=== PATIENT | female | born 1985 | race Caucasian/White ===

== ENCOUNTER 2016-03-31 14:32 | Emergency (ER) | payer BC, OTHER ==
[~2016-03-31] VITALS: Ht 162.6 cm; Wt 112.0 kg
[2016-03-31] MEDS ORDERED: FLUORESCEIN OPHTH 1 MG STRIP As Ordered ONE (15:11)
[2016-03-31] MEDS ORDERED: TETRACAINE 0.5% OPHTH SOLN 4ML As Ordered ONE (15:11)
[2016-03-31] MEDS ORDERED: MORPHINE 4 MG/ML 1ML SYRINGE As Ordered ONE (16:02)
[2016-03-31] MEDS ORDERED: ONDANSETRON 4MG/2ML VIAL (J2405) As Ordered ONE (16:02)
[2016-03-31] MEDS ORDERED: AcetaZOLAMIDE 500MG INJECTION (J1120) IV ONE (16:30)
[2016-03-31] MEDS ORDERED: prednisoLONE ACET 1% OPHTH SUSP 5ML OD SCH (16:30)
[2016-03-31] MEDS ORDERED: PILOCARPINE 2% OPHTH 15 ML SOLN OD SCH (16:30)
[2016-03-31] MEDS ORDERED: TIMOLOL MALEATE 0.5% OPHTH SOLN 5 ML XX SCH (16:30)
[2016-03-31 16:46] LABS: BASO # 0.1 K/mm3 (0.0-0.2); BASO % 1.4 % (0.0-1.0); EOS # 0.2 K/mm3 (0.0-0.50); EOS % 2.7 % (0.0-3.0); LARGE UNSTAINED CELL # 0.2 K/mm3 (0.0-0.4); LARGE UNSTAINED CELL % 2.9 % (0.0-4.0); LYMPH # 2.9 K/mm3 (1.5-4.5); LYMPH % 32.2 % (24.0-44.0); MEAN CORPUSCULAR HEMOGLOBIN 29.5 pg (27.0-33.0); MEAN CORPUSCULAR HGB CONC 32.6 g/dl (32.0-36.5); MEAN CORPUSCULAR VOLUME 90.3 fl (80.0-96.0); MONO # 0.4 K/mm3 (0.0-0.8); MONO % 4.9 % (0.0-5.0); NEUTROPHILS # 4.6 K/mm3 (1.8-7.7); PLATELET COUNT, AUTOMATED 323 k/mm3 (150-450); RED CELL DISTRIBUTION WIDTH 13.2 % (11.5-14.5); WHITE BLOOD COUNT 8.3 K/mm3 (4.0-10.0)
[2016-03-31 16:56] LABS: ANION GAP 7 MEQ/L (8-16); BLOOD UREA NITROGEN 14 MG/DL (7-18); CALCIUM LEVEL 9.5 MG/DL (8.5-10.1); CARBON DIOXIDE LEVEL 30 MEQ/L (21-32); CHLORIDE LEVEL 104 MEQ/L (98-107); CREATININE FOR GFR 0.87 MG/DL (0.55-1.02); GLOMERULAR FILTRATION RATE > 60.0 (>60); GLUCOSE, FASTING 80 MG/DL (70-105); POTASSIUM SERUM 3.5 MEQ/L (3.5-5.1); SODIUM LEVEL 141 MEQ/L (136-145)
--- NOTE | 2016-03-31 17:00 | EDDOCDS ---
Physician Documentation [facility] Name: Olimpia Gibson Age: 30 yrs Sex: Female : 1985 Arrival Date: 03/31/2016 Time: 14:32 Bed 17 Private MD: Disposition: 03/31 16:28 Critical Care:. pc Disposition: 03/31/16 16:47 Discharged to Home/Self Care. Impression: Acute angle-closure glaucoma, right eye. - Condition is Stable. - Discharge Instructions: Glaucoma. - Medication Reconciliation, Local Pharmacy Hours form. - Follow up: Sheela He; When: Upon discharge from the Emergency Department; Reason: Further diagnostic work-up. - Problem is new. - Symptoms have improved. Historical: - Allergies: Augmentin (Rash); - Home Meds: 1. Paxil 40 mg Oral tab 1 tab once daily (Last dose: 03/30/2016) 2. lisinopril 10 mg Oral tab 1 tab once daily (Last dose: 03/30/2016) 3. Vitamin B-12 1000mcg Oral month 4. hydrochlorothiazide 25 mg Oral tab 1 tab once daily (Last dose: 03/31/2016) 5. atorvastatin 20 mg oral tab 1 tab once daily (Last dose: 03/30/2016) 6. Garza-Linyah 0.25-35 mg-mcg oral tab 1 tab once daily (Last dose: 03/24/2016 20:00) 7. famotidine 20 mg Oral tab 1 tab every 12 hours (Last dose: 03/31/2016) - PMHx: Hypercholesterolemia; GERD; Hypertension; Depression; - PSHx: ; Cholecystectomy; - Social history: Smoking status: Patient states was never smoker of tobacco. No barriers to communication noted, The patient speaks fluent Salvadorean. - : The pt / caregiver states he / she is not on anticoagulants. Home medication list is obtained from the patient. - Exposure Risk Screening:: None identified. Exam: 16:28 EENT: right pupil 6mm, sluggish, painful constriction. Conjunctival erythema and pc scleral injection. Corneal edema. Anterior chamber normal. Limited fundoscopic exam normal. VA 20/25 right, 20/20 left. IOP right eye 44.. Vital Signs: 14:39 BP 139 / 73; Pulse 78; Resp 16; Temp 97.3; Pulse Ox 100% ; Weight 112.04 kg / 247.01 kr3 lbs; Height 5 ft. 4 in. (162.56 cm); Pain 10/10; 14:39 Body Mass Index 42.40 (112.04 kg, 162.56 cm) kr3 Visual Acuity: 14:49 Left Eye Visual acuity 20/25, ; Right Eye Visual acuity 20/25, ; Both Eyes Visual jmk acuity 20/25; Without Lenses; MDM: 15:14 Tetracaine (PF) Drops 0.5 % 2 drps Ophthalmic once ordered. jo4 15:14 Fluorescein Strip 1 strips Ophthalmic in right eye once ordered. jo4 15:35 Financial registration complete. gjb 15:57 IV Saline Lock ordered. pc 15:57 morphine 4 mg IVP every 15 minutes; Document pain score/vitals after each dose (Hold if pc SBP < 90mmHg) x2 ordered. 15:57 Ondansetron 4 mg IVP once ordered. pc 15:58 acetaZOLAMIDE 500 mg IV at calculated rate once ordered. pc 15:59 Timolol Drops 0.5 % 1 drps Ophthalmic once ordered. pc 15:59 CBC with Diff Ordered. EDMS 15:59 MED Profile Ordered. EDMS 16:03 Apraclonidine Drops 1 % 1 drps Ophthalmic in right eye once; one minute after Timolol pc ordered. 16:03 Pilocarpine Drops 2 % 1 drps Ophthalmic in right eye every 15 minutes; for total of 2 pc doses ordered. 16:03 prednisoLONE Drops 1 % 1 drps Ophthalmic in right eye every 15 minutes; for total of 4 pc doses ordered. 16:28 The patient has been re-examined and re-evaluated. The patient's symptoms have mildly pc improved after treatment. Physician consultation: Dr. Sheela He regarding patient's condition, and she advises to give the acetazolamide as ordered but to hold off on any further eye drops, that she should go directly to their office for laser therapy. . Disposition: The historical points, examination findings, and any diagnostic results supporting the provided diagnosis, were discussed with the patient or legal guardian. The need for outpatient follow up with the provider listed on their discharge instructions was discussed. They were encouraged to return to [facility], or the nearest ED, if symptoms worsen/persist, or for any other questions/concerns. 16:47 [facility] Payment Agreement was scanned into [employer] and attached to record. gjb Administered Medications: 15:45 Drug: Fluorescein 1 strips [fluorescein 1 mg eye strips (1 strips)] Route: Ophthalmic; [facility] Site: right eye; 16:32 Drug: Ondansetron 4 mg [ondansetron HCl 2 mg/mL intravenous solution (2 mL)] Route: bcj IVP; Site: right antecubital; 16:33 Drug: morphine 4 mg [morphine 4 mg/mL intravenous cartridge (1 mL)] Route: IVP; Site: bcj right antecubital; 16:55 Not Given (d/josé per MD): Pilocarpine Drops 2 % 1 drps Ophthalmic in right eye every 15 bcj minutes; for total of 2 doses 16:55 Not Given (d/josé per MD): prednisoLONE Drops 1 % 1 drps Ophthalmic in right eye every bcj 15 minutes; for total of 4 doses 16:56 Drug: acetaZOLAMIDE 500 mg Route: IV; Rate: calculated rate; Site: right antecubital; j 16:56 Not Given (d/josé per MD): Timolol Drops 0.5 % 1 drps Ophthalmic once bcj 16:56 Not Given (d/josé per MD): Apraclonidine Drops 1 % 1 drps Ophthalmic in right eye once; [facility] one minute after Timolol 16:57 Drug: Tetracaine (PF) 2 drps [tetracaine HCl (PF) 0.5 % eye drops (2 drps)] Route: bcj Ophthalmic; Site: right eye; Critical Care Time: 16:28 Critical care time: Bedside Care: 20 minutes, Consultation: 15 minutes, Family pc Intervention: 10 minutes. Total time: 45 minutes Signatures: Dispatcher [employer] Luis Lorenzo MD MD pc Johnson, Bruce, RN RN bcj Knapp, Jean, RN RN jmk Beck, Gabriela gjb Oosthuizen, Jane, DO DO jo4 The chart was reviewed and I authenticate all verbal orders and agree with the evaluation and treatment provided.Attachments: 16:47 [facility] Payment Agreement gjb MTDD
--- NOTE | 2016-03-31 17:00 | EDDOCDS ---
Nurse's Notes [facility] Name: Olimpia Gibson Age: 30 yrs Sex: Female : 1985 Arrival Date: 03/31/2016 Time: 14:32 Bed 17 Private MD: Diagnosis: Acute angle-closure glaucoma, right eye Presentation: 03/31 14:35 Presenting complaint: Patient states: transfer fro [facility] office for right eye pain jmk without injury x days. reports hazy vision. + headache, and indicates history of migraines, but this event is different. Mechanism of Injury: No Mechanism of Injury. The patient denies any loss of vision. Adult Sepsis Screening: The patient does not have new or worsening altered mentation. Patient's respiratory rate is less than 22. Systolic blood pressure is greater than 100. Patient has a qSOFA score of 1- Negative Sepsis Screen. Suicide/Homicide risk assessment- the patient denies having any suicidal and/or homicidal ideations and does not present with any other emotional, behavioral or mental health complaints. Status: Patient is not a food and nutrition services supervisor or dependent. Transition of care: patient was received from a primary care office; [facility]. 14:35 Acuity: MAINE Level 3 [facility] 14:35 Method Of Arrival: Ambulance [facility] Triage Assessment: 14:44 General: Appears uncomfortable. Pain: Location: right eye Pain currently is 6 out of 10 jmk on a pain scale. Pt Declines HIV testing. Historical: - Allergies: Augmentin (Rash); - Home Meds: 1. Paxil 40 mg Oral tab 1 tab once daily (Last dose: 03/30/2016) 2. lisinopril 10 mg Oral tab 1 tab once daily (Last dose: 03/30/2016) 3. Vitamin B-12 1000mcg Oral month 4. hydrochlorothiazide 25 mg Oral tab 1 tab once daily (Last dose: 03/31/2016) 5. atorvastatin 20 mg oral tab 1 tab once daily (Last dose: 03/30/2016) 6. [place]-Linyah 0.25-35 mg-mcg oral tab 1 tab once daily (Last dose: 03/24/2016 20:00) 7. famotidine 20 mg Oral tab 1 tab every 12 hours (Last dose: 03/31/2016) - PMHx: Hypercholesterolemia; GERD; Hypertension; Depression; - PSHx: ; Cholecystectomy; - Social history: Smoking status: Patient states was never smoker of tobacco. No barriers to communication noted, The patient speaks fluent Kinyarwanda. - : The pt / caregiver states he / she is not on anticoagulants. Home medication list is obtained from the patient. - Exposure Risk Screening:: None identified. Screenin:52 Screening information is obtained from the patient. Fall risk: No risks identified. jmk Assistance ADL's: requires no assistance with activities of daily living. Abuse/DV Screen: The patient / caregiver reports he/she is: not in a situation that causes fear, pain or injury. Nutritional screening: No deficits noted. Advance Directives: Currently, there is no health care proxy. There is no active DNR order. There is no living will. There is no Power of Software Design Analyst. Advance directive information has not previously been placed in an [facility] medical record. Further advance directive information is declined. home support is adequate. Assessment: 14:50 General: Appears Appears uncomfortable. MARKIE . + light sensitive. Sclera redness on jmk right. Indicates discomfort to occipital and to top of head.. Vital Signs: 14:39 BP 139 / 73; Pulse 78; Resp 16; Temp 97.3; Pulse Ox 100% ; Weight 112.04 kg; Height 5 kr3 ft. 4 in. (162.56 cm); Pain 10/10; 14:39 Body Mass Index 42.40 (112.04 kg, 162.56 cm) kr3 Vitals: 14:39 Log In Time N/A - ambulance arrival. kr3 Visual Acuity: 14:49 Left Eye Visual acuity 20/25, ; Right Eye Visual acuity 20/25, ; Both Eyes Visual jmk acuity 20/25; Without Lenses; ED Course: 14:32 Patient visited by Bhargav Goel PCA. jlf 14:32 Patient moved to Waiting jlf 14:33 Patient moved to [id number] jlf 14:38 Triage Initiated k 14:42 [facility] jo4 14:42 Luis Blackwell MD is Attending Physician. jo4 14:46 Patient visited by Mariia Sinclair DO. jo4 14:46 Patient visited by Mariia Sinclair DO. jo4 14:52 Patient visited by Olvin HewittWALT. alicia 14:52 The patient / caregiver is instructed regarding the plan of care and ED course. alicia 14:52 Maintain field IV. Gauge & site: 20 right ac. alicia 15:54 ADAM Bennett is Referral Physician. jo4 15:57 Patient moved to 17 [facility] 16:16 Patient visited by Kasandra Barajas PCA. ct3 16:46 Patient name changed from Olimpia\S\\S\Paige\S\ to Olimpia\S\E\S\Paige. EDMS 16:47 Sheela He is Referral Physician. pc 16:47 [facility] [place] was scanned into [employer] and attached to record. gjb 16:58 Patient visited by [facility]ket [facility] RN[facility] Administered Medications: 15:45 Drug: Fluorescein 1 strips [fluorescein 1 mg eye strips (1 strips)] Route: Ophthalmic; j Site: right eye; 16:32 Drug: Ondansetron 4 mg [ondansetron HCl 2 mg/mL intravenous solution (2 mL)] Route: bcj IVP; Site: right antecubital; 16:33 Drug: morphine 4 mg [morphine 4 mg/mL intravenous cartridge (1 mL)] Route: IVP; Site: bcj right antecubital; 16:55 Not Given (d/josé per MD): Pilocarpine Drops 2 % 1 drps Ophthalmic in right eye every 15 bcj minutes; for total of 2 doses 16:55 Not Given (d/josé per MD): prednisoLONE Drops 1 % 1 drps Ophthalmic in right eye every bcj 15 minutes; for total of 4 doses 16:56 Drug: acetaZOLAMIDE 500 mg Route: IV; Rate: calculated rate; Site: right antecubital; bcj 16:56 Not Given (d/ojsé per MD): Timolol Drops 0.5 % 1 drps Ophthalmic once bcj 16:56 Not Given (d/josé per MD): Apraclonidine Drops 1 % 1 drps Ophthalmic in right eye once; bcj one minute after Timolol 16:57 Drug: Tetracaine (PF) 2 drps [tetracaine HCl (PF) 0.5 % eye drops (2 drps)] Route: bcj Ophthalmic; Site: right eye; Order Results: Lab Order: CBC with Diff; SPEC'M 03/31/16 16:27 Test: WHITE BLOOD COUNT; Value: 8.3; Range: 4.0-10.0; Units: K/mm3; Status: F Test: RED BLOOD COUNT; Value: 4.12; Range: 4.00-5.40; Units: M/mm3; Status: F Test: HEMOGLOBIN; Value: 12.1; Range: 12.0-16.0; Units: g/dl; Status: F Test: HEMATOCRIT; Value: 37.2; Range: 36.0-47.0; Units: %; Status: F Test: MEAN CORPUSCULAR VOLUME; Value: 90.3; Range: 80.0-96.0; Units: fl; Status: F Test: MEAN CORPUSCULAR HEMOGLOBIN; Value: 29.5; Range: 27.0-33.0; Units: pg; Status: F Test: MEAN CORPUSCULAR HGB CONC; Value: 32.6; Range: 32.0-36.5; Units: g/dl; Status: F Test: RED CELL DISTRIBUTION WIDTH; Value: 13.2; Range: 11.5-14.5; Units: %; Status: F Test: PLATELET COUNT, AUTOMATED; Value: 323; Range: 150-450; Units: k/mm3; Status: F Test: NEUTROPHILS %; Value: 56.0; Range: 36.0-66.0; Units: %; Status: F Test: LYMPH %; Value: 32.2; Range: 24.0-44.0; Units: %; Status: F Test: MONO %; Value: 4.9; Range: 0.0-5.0; Units: %; Status: F Test: EOS %; Value: 2.7; Range: 0.0-3.0; Units: %; Status: F Test: BASO %; Value: 1.4; Range: 0.0-1.0; Abnormal: Above high normal; Units: %; Status: F Test: LARGE UNSTAINED CELL %; Value: 2.9; Range: 0.0-4.0; Units: %; Status: F Test: NEUTROPHILS #; Value: 4.6; Range: 1.8-7.7; Units: K/mm3; Status: F Test: LYMPH #; Value: 2.9; Range: 1.5-4.5; Units: K/mm3; Status: F Test: MONO #; Value: 0.4; Range: 0.0-0.8; Units: K/mm3; Status: F Test: EOS #; Value: 0.2; Range: 0.0-0.50; Units: K/mm3; Status: F Test: BASO #; Value: 0.1; Range: 0.0-0.2; Units: K/mm3; Status: F Test: LARGE UNSTAINED CELL #; Value: 0.2; Range: 0.0-0.4; Units: K/mm3; Status: F Lab Order: MED Profile; SPEC'M 03/31/16 16:27 Test: GLUCOSE, FASTING; Value: 80; Range: 70-105; Units: MG/DL; Status: F Test: BLOOD UREA NITROGEN; Value: 14; Range: 7-18; Units: MG/DL; Status: F Test: CREATININE FOR GFR; Value: 0.87; Range: 0.55-1.02; Units: MG/DL; Status: F Test: GLOMERULAR FILTRATION RATE; Value: > 60.0; Range: >60; Status: F Test: SODIUM LEVEL; Value: 141; Range: 136-145; Units: MEQ/L; Status: F Test: POTASSIUM SERUM; Value: 3.5; Range: 3.5-5.1; Units: MEQ/L; Status: F Test: CHLORIDE LEVEL; Value: 104; Range: 98-107; Units: MEQ/L; Status: F Test: CARBON DIOXIDE LEVEL; Value: 30; Range: 21-32; Units: MEQ/L; Status: F Test: ANION GAP; Value: 7; Range: 8-16; Abnormal: Below low normal; Units: MEQ/L; Status: F Test: CALCIUM LEVEL; Value: 9.5; Range: 8.5-10.1; Units: MG/DL; Status: F Test Note: ; Units are mL/min/1.73 m2 Chronic Kidney Disease Staging per NKF: Stage I & II GFR >=60 Normal to Mildly Decreased Stage III GFR 30-59 Moderately Decreased Stage IV GFR 15-29 Severely Decreased Stage V GFR <15 Very Little GFR Left ESRD GFR <15 on SOLUTION SPECIALIST Outcome: 15:55 Discharge ordered by Provider. jo4 16:47 Discharge ordered by Provider. pc 16:59 Patient left the ED. maya Signatures: Dispatcher MedHost EDLuis Godfrey MD MD pc Jobson, Karen, RN RN Bereket Durbin RN RN Olvin MckeonRN RN Vicky Alba,RN RN kr3 Kasandra Barajas, PROFESSIONAL NURSE PROFESSIONAL NURSE ct3 Bhargav Goel, PROFESSIONAL NURSE PROFESSIONAL NURSE dougief Ирина Carrillo Jane, DO DO jo4 MTDD
--- NOTE | 2016-04-02 18:00 | EDDOCDS ---
Nurse's Notes [facility] Name: Olimpia Gibson Age: 30 yrs Sex: Female : 1985 Arrival Date: 03/31/2016 Time: 14:32 Bed 17 Private MD: Diagnosis: Acute angle-closure glaucoma, right eye Presentation: 03/31 14:35 Presenting complaint: Patient states: transfer fro [facility] office for right eye pain jmk without injury x days. reports hazy vision. + headache, and indicates history of migraines, but this event is different. Mechanism of Injury: No Mechanism of Injury. The patient denies any loss of vision. Adult Sepsis Screening: The patient does not have new or worsening altered mentation. Patient's respiratory rate is less than 22. Systolic blood pressure is greater than 100. Patient has a qSOFA score of 1- Negative Sepsis Screen. Suicide/Homicide risk assessment- the patient denies having any suicidal and/or homicidal ideations and does not present with any other emotional, behavioral or mental health complaints. Status: Patient is not a community service officer coordinator or dependent. Transition of care: patient was received from a primary care office; [facility]. 14:35 Acuity: MAINE Level 3 [facility] 14:35 Method Of Arrival: Ambulance [facility] Triage Assessment: 14:44 General: Appears uncomfortable. Pain: Location: right eye Pain currently is 6 out of 10 jmk on a pain scale. Pt Declines HIV testing. Historical: - Allergies: Augmentin (Rash); - Home Meds: 1. Paxil 40 mg Oral tab 1 tab once daily (Last dose: 03/30/2016) 2. lisinopril 10 mg Oral tab 1 tab once daily (Last dose: 03/30/2016) 3. Vitamin B-12 1000mcg Oral month 4. hydrochlorothiazide 25 mg Oral tab 1 tab once daily (Last dose: 03/31/2016) 5. atorvastatin 20 mg oral tab 1 tab once daily (Last dose: 03/30/2016) 6. [place]-Linyah 0.25-35 mg-mcg oral tab 1 tab once daily (Last dose: 03/24/2016 20:00) 7. famotidine 20 mg Oral tab 1 tab every 12 hours (Last dose: 03/31/2016) - PMHx: Hypercholesterolemia; GERD; Hypertension; Depression; - PSHx: ; Cholecystectomy; - Social history: Smoking status: Patient states was never smoker of tobacco. No barriers to communication noted, The patient speaks fluent Romansh. - : The pt / caregiver states he / she is not on anticoagulants. Home medication list is obtained from the patient. - Exposure Risk Screening:: None identified. Screenin:52 Screening information is obtained from the patient. Fall risk: No risks identified. jmk Assistance ADL's: requires no assistance with activities of daily living. Abuse/DV Screen: The patient / caregiver reports he/she is: not in a situation that causes fear, pain or injury. Nutritional screening: No deficits noted. Advance Directives: Currently, there is no health care proxy. There is no active DNR order. There is no living will. There is no Power of Ops Analyst. Advance directive information has not previously been placed in an [facility] medical record. Further advance directive information is declined. home support is adequate. Assessment: 14:50 General: Appears Appears uncomfortable. MARKIE . + light sensitive. Sclera redness on jmk right. Indicates discomfort to occipital and to top of head.. Vital Signs: 14:39 BP 139 / 73; Pulse 78; Resp 16; Temp 97.3; Pulse Ox 100% ; Weight 112.04 kg; Height 5 kr3 ft. 4 in. (162.56 cm); Pain 10/10; 14:39 Body Mass Index 42.40 (112.04 kg, 162.56 cm) kr3 Vitals: 14:39 Log In Time N/A - ambulance arrival. kr3 Visual Acuity: 14:49 Left Eye Visual acuity 20/25, ; Right Eye Visual acuity 20/25, ; Both Eyes Visual jmk acuity 20/25; Without Lenses; ED Course: 14:32 Patient visited by Bhargav Goel PCA. jlf 14:32 Patient moved to Waiting jlf 14:33 Patient moved to [id number] jlf 14:38 Triage Initiated k 14:42 [facility] jo4 14:42 Luis Blackwell MD is Attending Physician. jo4 14:46 Patient visited by Mariia Sinclair DO. jo4 14:46 Patient visited by Mariia Sinclair DO. jo4 14:52 Patient visited by Olvin HewittWALT. alicia 14:52 The patient / caregiver is instructed regarding the plan of care and ED course. alicia 14:52 Maintain field IV. Gauge & site: 20 right ac. alicia 15:54 ADAM Bennett is Referral Physician. jo4 15:57 Patient moved to 17 [facility] 16:16 Patient visited by Kasandra Barajas PCA. ct3 16:46 Patient name changed from Olimpia\S\\S\Paige\S\ to Olimpia\S\E\S\Paige. EDMS 16:47 Sheela He is Referral Physician. pc 16:47 [facility] Payment Agreement was scanned into [employer] and attached to record. gjb 16:58 Patient visited by Bereket Andrea RN. [facility] 04/01 11:45 T-Sheet-- Draft Copy was scanned into [employer] and attached to record. gb Administered Medications: 03/31 15:45 Drug: Fluorescein 1 strips [fluorescein 1 mg eye strips (1 strips)] Route: Ophthalmic; [facility] Site: right eye; 16:32 Drug: Ondansetron 4 mg [ondansetron HCl 2 mg/mL intravenous solution (2 mL)] Route: bcj IVP; Site: right antecubital; 16:33 Drug: morphine 4 mg [morphine 4 mg/mL intravenous cartridge (1 mL)] Route: IVP; Site: j right antecubital; 16:55 Not Given (d/josé per MD): Pilocarpine Drops 2 % 1 drps Ophthalmic in right eye every 15 bcj minutes; for total of 2 doses 16:55 Not Given (d/josé per MD): prednisoLONE Drops 1 % 1 drps Ophthalmic in right eye every bcj 15 minutes; for total of 4 doses 16:56 Drug: acetaZOLAMIDE 500 mg Route: IV; Rate: calculated rate; Site: right antecubital; [facility] 16:56 Not Given (d/josé per MD): Timolol Drops 0.5 % 1 drps Ophthalmic once bcj 16:56 Not Given (d/josé per MD): Apraclonidine Drops 1 % 1 drps Ophthalmic in right eye once; bcj one minute after Timolol 16:57 Drug: Tetracaine (PF) 2 drps [tetracaine HCl (PF) 0.5 % eye drops (2 drps)] Route: [facility] Ophthalmic; Site: right eye; Order Results: Lab Order: CBC with Diff; SPEC'M 03/31/16 16:27 Test: WHITE BLOOD COUNT; Value: 8.3; Range: 4.0-10.0; Units: K/mm3; Status: F Test: RED BLOOD COUNT; Value: 4.12; Range: 4.00-5.40; Units: M/mm3; Status: F Test: HEMOGLOBIN; Value: 12.1; Range: 12.0-16.0; Units: g/dl; Status: F Test: HEMATOCRIT; Value: 37.2; Range: 36.0-47.0; Units: %; Status: F Test: MEAN CORPUSCULAR VOLUME; Value: 90.3; Range: 80.0-96.0; Units: fl; Status: F Test: MEAN CORPUSCULAR HEMOGLOBIN; Value: 29.5; Range: 27.0-33.0; Units: pg; Status: F Test: MEAN CORPUSCULAR HGB CONC; Value: 32.6; Range: 32.0-36.5; Units: g/dl; Status: F Test: RED CELL DISTRIBUTION WIDTH; Value: 13.2; Range: 11.5-14.5; Units: %; Status: F Test: PLATELET COUNT, AUTOMATED; Value: 323; Range: 150-450; Units: k/mm3; Status: F Test: NEUTROPHILS %; Value: 56.0; Range: 36.0-66.0; Units: %; Status: F Test: LYMPH %; Value: 32.2; Range: 24.0-44.0; Units: %; Status: F Test: MONO %; Value: 4.9; Range: 0.0-5.0; Units: %; Status: F Test: EOS %; Value: 2.7; Range: 0.0-3.0; Units: %; Status: F Test: BASO %; Value: 1.4; Range: 0.0-1.0; Abnormal: Above high normal; Units: %; Status: F Test: LARGE UNSTAINED CELL %; Value: 2.9; Range: 0.0-4.0; Units: %; Status: F Test: NEUTROPHILS #; Value: 4.6; Range: 1.8-7.7; Units: K/mm3; Status: F Test: LYMPH #; Value: 2.9; Range: 1.5-4.5; Units: K/mm3; Status: F Test: MONO #; Value: 0.4; Range: 0.0-0.8; Units: K/mm3; Status: F Test: EOS #; Value: 0.2; Range: 0.0-0.50; Units: K/mm3; Status: F Test: BASO #; Value: 0.1; Range: 0.0-0.2; Units: K/mm3; Status: F Test: LARGE UNSTAINED CELL #; Value: 0.2; Range: 0.0-0.4; Units: K/mm3; Status: F Lab Order: MED Profile; [facility]'M 03/31/16 16:27 Test: GLUCOSE, FASTING; Value: 80; Range: 70-105; Units: MG/DL; Status: F Test: BLOOD UREA NITROGEN; Value: 14; Range: 7-18; Units: MG/DL; Status: F Test: CREATININE FOR GFR; Value: 0.87; Range: 0.55-1.02; Units: MG/DL; Status: F Test: GLOMERULAR FILTRATION RATE; Value: > 60.0; Range: >60; Status: F Test: SODIUM LEVEL; Value: 141; Range: 136-145; Units: MEQ/L; Status: F Test: POTASSIUM SERUM; Value: 3.5; Range: 3.5-5.1; Units: MEQ/L; Status: F Test: CHLORIDE LEVEL; Value: 104; Range: 98-107; Units: MEQ/L; Status: F Test: CARBON DIOXIDE LEVEL; Value: 30; Range: 21-32; Units: MEQ/L; Status: F Test: ANION GAP; Value: 7; Range: 8-16; Abnormal: Below low normal; Units: MEQ/L; Status: F Test: CALCIUM LEVEL; Value: 9.5; Range: 8.5-10.1; Units: MG/DL; Status: F Test Note: ; Units are mL/min/1.73 m2 Chronic Kidney Disease Staging per NKF: Stage I & II GFR >=60 Normal to Mildly Decreased Stage III GFR 30-59 Moderately Decreased Stage IV GFR 15-29 Severely Decreased Stage V GFR <15 Very Little GFR Left ESRD GFR <15 on BAG BUNDLER Outcome: 15:55 Discharge ordered by Provider. jo4 16:47 Discharge ordered by Provider. 16:59 Patient left the ED. maya Signatures: Dispatcher [employer] EDMS Luis Blackwell MD MD pc Jobson, Karen, RN RN Bereket Durbin, RN RN Olvin Mckeon,RN RN Daylin Clarke, Jim Reg Vicky Houser,RN RN kr3 Kasandra Barajas, REAL ESTATE LAWYER REAL ESTATE LAWYER ct3 Manasa, Bhargav, REAL ESTATE LAWYER REAL ESTATE LAWYER jlf Ирина Carrillo Jane, DO DO jo4 Chart Complete BRITANY
--- NOTE | 2016-04-02 18:00 | EDDOCDS ---
Physician Documentation [facility] Name: Olimpia Gibson Age: 30 yrs Sex: Female : 1985 Arrival Date: 03/31/2016 Time: 14:32 Bed 17 Private MD: Disposition: 03/31 16:28 Critical Care:. pc Disposition: 03/31/16 16:47 Discharged to Home/Self Care. Impression: Acute angle-closure glaucoma, right eye. - Condition is Stable. - Discharge Instructions: Glaucoma. - Medication Reconciliation, Local Pharmacy Hours form. - Follow up: Sheela He; When: Upon discharge from the Emergency Department; Reason: Further diagnostic work-up. - Problem is new. - Symptoms have improved. Historical: - Allergies: Augmentin (Rash); - Home Meds: 1. Paxil 40 mg Oral tab 1 tab once daily (Last dose: 03/30/2016) 2. lisinopril 10 mg Oral tab 1 tab once daily (Last dose: 03/30/2016) 3. Vitamin B-12 1000mcg Oral month 4. hydrochlorothiazide 25 mg Oral tab 1 tab once daily (Last dose: 03/31/2016) 5. atorvastatin 20 mg oral tab 1 tab once daily (Last dose: 03/30/2016) 6. [place]-Linyah 0.25-35 mg-mcg oral tab 1 tab once daily (Last dose: 03/24/2016 20:00) 7. famotidine 20 mg Oral tab 1 tab every 12 hours (Last dose: 03/31/2016) - PMHx: Hypercholesterolemia; GERD; Hypertension; Depression; - PSHx: ; Cholecystectomy; - Social history: Smoking status: Patient states was never smoker of tobacco. No barriers to communication noted, The patient speaks fluent Belarusian. - : The pt / caregiver states he / she is not on anticoagulants. Home medication list is obtained from the patient. - Exposure Risk Screening:: None identified. Exam: 16:28 EENT: right pupil 6mm, sluggish, painful constriction. Conjunctival erythema and pc scleral injection. Corneal edema. Anterior chamber normal. Limited fundoscopic exam normal. VA 20/25 right, 20/20 left. IOP right eye 44.. Vital Signs: 14:39 BP 139 / 73; Pulse 78; Resp 16; Temp 97.3; Pulse Ox 100% ; Weight 112.04 kg / 247.01 kr3 lbs; Height 5 ft. 4 in. (162.56 cm); Pain 10/10; 14:39 Body Mass Index 42.40 (112.04 kg, 162.56 cm) kr3 Visual Acuity: 14:49 Left Eye Visual acuity 20/25, ; Right Eye Visual acuity 20/25, ; Both Eyes Visual jmk acuity 20/25; Without Lenses; MDM: 15:14 Tetracaine (PF) Drops 0.5 % 2 drps Ophthalmic once ordered. jo4 15:14 Fluorescein Strip 1 strips Ophthalmic in right eye once ordered. jo4 15:35 Financial registration complete. gjb 15:57 IV Saline Lock ordered. pc 15:57 morphine 4 mg IVP every 15 minutes; Document pain score/vitals after each dose (Hold if pc SBP < 90mmHg) x2 ordered. 15:57 Ondansetron 4 mg IVP once ordered. pc 15:58 acetaZOLAMIDE 500 mg IV at calculated rate once ordered. pc 15:59 Timolol Drops 0.5 % 1 drps Ophthalmic once ordered. pc 15:59 CBC with Diff Ordered. EDMS 15:59 MED Profile Ordered. EDMS 16:03 Apraclonidine Drops 1 % 1 drps Ophthalmic in right eye once; one minute after Timolol pc ordered. 16:03 Pilocarpine Drops 2 % 1 drps Ophthalmic in right eye every 15 minutes; for total of 2 pc doses ordered. 16:03 prednisoLONE Drops 1 % 1 drps Ophthalmic in right eye every 15 minutes; for total of 4 pc doses ordered. 16:28 The patient has been re-examined and re-evaluated. The patient's symptoms have mildly pc improved after treatment. Physician consultation: Dr. Sheela He regarding patient's condition, and she advises to give the acetazolamide as ordered but to hold off on any further eye drops, that she should go directly to their office for laser therapy. . Disposition: The historical points, examination findings, and any diagnostic results supporting the provided diagnosis, were discussed with the patient or legal guardian. The need for outpatient follow up with the provider listed on their discharge instructions was discussed. They were encouraged to return to [facility], or the nearest ED, if symptoms worsen/persist, or for any other questions/concerns. 16:47 [facility] [place] Agreement was scanned into [employer] and attached to record. gjb 04/01 11:45 T-Sheet-- Draft Copy was scanned into [employer] and attached to record. gb Administered Medications: 03/31 15:45 Drug: Fluorescein 1 strips [fluorescein 1 mg eye strips (1 strips)] Route: Ophthalmic; [facility] Site: right eye; 16:32 Drug: Ondansetron 4 mg [ondansetron HCl 2 mg/mL intravenous solution (2 mL)] Route: bcj IVP; Site: right antecubital; 16:33 Drug: morphine 4 mg [morphine 4 mg/mL intravenous cartridge (1 mL)] Route: IVP; Site: bc right antecubital; 16:55 Not Given (d/josé per MD): Pilocarpine Drops 2 % 1 drps Ophthalmic in right eye every 15 bcj minutes; for total of 2 doses 16:55 Not Given (d/josé per MD): prednisoLONE Drops 1 % 1 drps Ophthalmic in right eye every bcj 15 minutes; for total of 4 doses 16:56 Drug: acetaZOLAMIDE 500 mg Route: IV; Rate: calculated rate; Site: right antecubital; j 16:56 Not Given (d/josé per MD): Timolol Drops 0.5 % 1 drps Ophthalmic once bcj 16:56 Not Given (d/josé per MD): Apraclonidine Drops 1 % 1 drps Ophthalmic in right eye once; j one minute after Timolol 16:57 Drug: Tetracaine (PF) 2 drps [tetracaine HCl (PF) 0.5 % eye drops (2 drps)] Route: bcj Ophthalmic; Site: right eye; Critical Care Time: 16:28 Critical care time: Bedside Care: 20 minutes, Consultation: 15 minutes, Family pc Intervention: 10 minutes. Total time: 45 minutes Signatures: Dispatcher [employer] Luis Lorenzo MD MD pc Johnson, Bruce, RN RN bcj Knapp, Jean, RN RN Daylin Clarke Reg Reg gb Beck, Gabriela [facility] Mariia Sinclair DO DO jo4 The chart was reviewed and I authenticate all verbal orders and agree with the evaluation and treatment provided.Attachments: 16:47 [facility] [place] Agreement [facility] 04/01 11:45 T-Sheet-- Draft Copy gb Chart Complete MTDD
--- NOTE | 2016-04-02 18:00 | EDDOCDS ---
Physician Documentation [facility] Name: Olimpia Gibson Age: 30 yrs Sex: Female : 1985 Arrival Date: 03/31/2016 Time: 14:32 Bed 17 Private MD: Disposition: 03/31 16:28 Critical Care:. pc Disposition: 03/31/16 16:47 Discharged to Home/Self Care. Impression: Acute angle-closure glaucoma, right eye. - Condition is Stable. - Discharge Instructions: Glaucoma. - Medication Reconciliation, Local Pharmacy Hours form. - Follow up: Sheela He; When: Upon discharge from the Emergency Department; Reason: Further diagnostic work-up. - Problem is new. - Symptoms have improved. Historical: - Allergies: Augmentin (Rash); - Home Meds: 1. Paxil 40 mg Oral tab 1 tab once daily (Last dose: 03/30/2016) 2. lisinopril 10 mg Oral tab 1 tab once daily (Last dose: 03/30/2016) 3. Vitamin B-12 1000mcg Oral month 4. hydrochlorothiazide 25 mg Oral tab 1 tab once daily (Last dose: 03/31/2016) 5. atorvastatin 20 mg oral tab 1 tab once daily (Last dose: 03/30/2016) 6. [place]-Linyah 0.25-35 mg-mcg oral tab 1 tab once daily (Last dose: 03/24/2016 20:00) 7. famotidine 20 mg Oral tab 1 tab every 12 hours (Last dose: 03/31/2016) - PMHx: Hypercholesterolemia; GERD; Hypertension; Depression; - PSHx: ; Cholecystectomy; - Social history: Smoking status: Patient states was never smoker of tobacco. No barriers to communication noted, The patient speaks fluent Maori. - : The pt / caregiver states he / she is not on anticoagulants. Home medication list is obtained from the patient. - Exposure Risk Screening:: None identified. Exam: 16:28 EENT: right pupil 6mm, sluggish, painful constriction. Conjunctival erythema and pc scleral injection. Corneal edema. Anterior chamber normal. Limited fundoscopic exam normal. VA 20/25 right, 20/20 left. IOP right eye 44.. Vital Signs: 14:39 BP 139 / 73; Pulse 78; Resp 16; Temp 97.3; Pulse Ox 100% ; Weight 112.04 kg / 247.01 kr3 lbs; Height 5 ft. 4 in. (162.56 cm); Pain 10/10; 14:39 Body Mass Index 42.40 (112.04 kg, 162.56 cm) kr3 Visual Acuity: 14:49 Left Eye Visual acuity 20/25, ; Right Eye Visual acuity 20/25, ; Both Eyes Visual jmk acuity 20/25; Without Lenses; MDM: 15:14 Tetracaine (PF) Drops 0.5 % 2 drps Ophthalmic once ordered. jo4 15:14 Fluorescein Strip 1 strips Ophthalmic in right eye once ordered. jo4 15:35 Financial registration complete. gjb 15:57 IV Saline Lock ordered. pc 15:57 morphine 4 mg IVP every 15 minutes; Document pain score/vitals after each dose (Hold if pc SBP < 90mmHg) x2 ordered. 15:57 Ondansetron 4 mg IVP once ordered. pc 15:58 acetaZOLAMIDE 500 mg IV at calculated rate once ordered. pc 15:59 Timolol Drops 0.5 % 1 drps Ophthalmic once ordered. pc 15:59 CBC with Diff Ordered. EDMS 15:59 MED Profile Ordered. EDMS 16:03 Apraclonidine Drops 1 % 1 drps Ophthalmic in right eye once; one minute after Timolol pc ordered. 16:03 Pilocarpine Drops 2 % 1 drps Ophthalmic in right eye every 15 minutes; for total of 2 pc doses ordered. 16:03 prednisoLONE Drops 1 % 1 drps Ophthalmic in right eye every 15 minutes; for total of 4 pc doses ordered. 16:28 The patient has been re-examined and re-evaluated. The patient's symptoms have mildly pc improved after treatment. Physician consultation: Dr. Sheela He regarding patient's condition, and she advises to give the acetazolamide as ordered but to hold off on any further eye drops, that she should go directly to their office for laser therapy. . Disposition: The historical points, examination findings, and any diagnostic results supporting the provided diagnosis, were discussed with the patient or legal guardian. The need for outpatient follow up with the provider listed on their discharge instructions was discussed. They were encouraged to return to [facility], or the nearest ED, if symptoms worsen/persist, or for any other questions/concerns. 16:47 [facility] [place] Agreement was scanned into [employer] and attached to record. gjb 04/01 11:45 T-Sheet-- Draft Copy was scanned into [employer] and attached to record. gb Administered Medications: 03/31 15:45 Drug: Fluorescein 1 strips [fluorescein 1 mg eye strips (1 strips)] Route: Ophthalmic; [facility] Site: right eye; 16:32 Drug: Ondansetron 4 mg [ondansetron HCl 2 mg/mL intravenous solution (2 mL)] Route: bcj IVP; Site: right antecubital; 16:33 Drug: morphine 4 mg [morphine 4 mg/mL intravenous cartridge (1 mL)] Route: IVP; Site: bc right antecubital; 16:55 Not Given (d/josé per MD): Pilocarpine Drops 2 % 1 drps Ophthalmic in right eye every 15 bcj minutes; for total of 2 doses 16:55 Not Given (d/josé per MD): prednisoLONE Drops 1 % 1 drps Ophthalmic in right eye every bcj 15 minutes; for total of 4 doses 16:56 Drug: acetaZOLAMIDE 500 mg Route: IV; Rate: calculated rate; Site: right antecubital; j 16:56 Not Given (d/josé per MD): Timolol Drops 0.5 % 1 drps Ophthalmic once bcj 16:56 Not Given (d/josé per MD): Apraclonidine Drops 1 % 1 drps Ophthalmic in right eye once; j one minute after Timolol 16:57 Drug: Tetracaine (PF) 2 drps [tetracaine HCl (PF) 0.5 % eye drops (2 drps)] Route: bcj Ophthalmic; Site: right eye; Critical Care Time: 16:28 Critical care time: Bedside Care: 20 minutes, Consultation: 15 minutes, Family pc Intervention: 10 minutes. Total time: 45 minutes Signatures: Dispatcher [employer] Luis Lorenzo MD MD pc Johnson, Bruce, RN RN bcj Knapp, Jean, RN RN Daylin Clarke Reg Reg gb Beck, Gabriela [facility] Mariia Sinclair DO DO jo4 The chart was reviewed and I authenticate all verbal orders and agree with the evaluation and treatment provided.Attachments: 16:47 [facility] Payment Agreement [facility] 04/01 11:45 T-Sheet-- Draft Copy gb Chart Complete MTDD
== END 2016-03-31 16:59 | disposition home or self-care (01) ==
LOC: M ED 14:32
DX: H40.9 Unspecified glaucoma (principal); I10 Essential (primary) hypertension; F32.9 Major depressive disorder, single episode, unspecified; E78.00 Pure hypercholesterolemia, unspecified; K21.9 Gastro-esophageal reflux disease without esophagitis; Z90.49 Acquired absence of other specified parts of digestive tract; Z79.899 Other long term (current) drug therapy; Z88.1 Allergy status to other antibiotic agents
CPT/HCPCS: 80048; 85025; 96374; 96375; 99283; J1120; J2405

== ENCOUNTER 2017-01-13 12:07 | Inpatient (IN) | payer OTHER, BC ==
[~2017-01-13] VITALS: Ht 162.6 cm; Wt 63.2 kg
[2017-01-13] MEDS ORDERED: MONT10TA2 PO (12:45)
[2017-01-13] MEDS ORDERED: VENL150C43 PO (12:45)
[2017-01-13] MEDS ORDERED: SING10TA32 PO (12:45)
[2017-01-13] MEDS ORDERED: IRON65TA PO (12:45)
[2017-01-13] MEDS ORDERED: VITA500046 PO (12:45)
[2017-01-13] MEDS ORDERED: MISO200T56 PO (12:45)
[2017-01-13] MEDS ORDERED: Biotin PO (12:45)
[2017-01-13] MEDS ORDERED: FOLI800C PO (12:45)
[2017-01-13] MEDS ORDERED: MULT1CHW39 PO (12:45)
[2017-01-13] MEDS ORDERED: OLAN5TAB PO (12:45)
[2017-01-13 13:05] LABS: MEAN CORPUSCULAR HEMOGLOBIN 30.7 pg (27.0-33.0); MEAN CORPUSCULAR HGB CONC 32.5 g/dl (32.0-36.5); MEAN CORPUSCULAR VOLUME 94.4 fl (80.0-96.0); PLATELET COUNT, AUTOMATED 338 10^3/uL (150-450); RED CELL DISTRIBUTION WIDTH 13.4 % (11.5-14.5); WHITE BLOOD COUNT 5.9 10^3/uL (4.0-10.0)
[2017-01-13 13:23] LABS: CONTROL LINE HCG INT CTR LINE PRESENT
[2017-01-13 13:31] LABS: METHADONE URINE NEGATIVE (NEGATIVE)
[2017-01-13 13:39] LABS: ALBUMIN 3.7 GM/DL (3.2-5.2); ALBUMIN/GLOBULIN RATIO 1.23 (1.00-1.93); ALKALINE PHOSPHATASE 77 U/L (45-117); ALT/SGPT 19 U/L (12-78); ANION GAP 7 MEQ/L (8-16); AST/SGOT 9 U/L (7-37); BILIRUBIN,DIRECT 0.1 MG/DL (0.0-0.2); BILIRUBIN,TOTAL 0.3 MG/DL (0.2-1.0); BLOOD UREA NITROGEN 8 MG/DL (7-18); CALCIUM LEVEL 9.1 MG/DL (8.5-10.1); CARBON DIOXIDE LEVEL 23 MEQ/L (21-32); CHLORIDE LEVEL 113 MEQ/L (98-107); CREATININE FOR GFR 0.68 MG/DL (0.55-1.02); GLOMERULAR FILTRATION RATE > 60.0 (>60); GLUCOSE, FASTING 109 MG/DL (70-105); POTASSIUM SERUM 4.2 MEQ/L (3.5-5.1); SODIUM LEVEL 143 MEQ/L (136-145); TOTAL PROTEIN 6.7 GM/DL (6.4-8.2)
[2017-01-13] MEDS ORDERED: OMEP20CA3 PO (15:41)
[2017-01-13] MEDS ORDERED: VITMTA PO (15:41)
[2017-01-13] MEDS ORDERED: BIOT1CAP2 PO (15:41)
[2017-01-13 17:16] VITALS: BP 122/66
[2017-01-13] MEDS ORDERED: MOM 30ML SUSPENSION UDC PO PRN (19:00)
[2017-01-13] MEDS ORDERED: LORazepam 1 MG TAB PO PRN (19:00)
[2017-01-13] MEDS ORDERED: LORazepam 2 MG TAB PO PRN (19:00)
[2017-01-13] MEDS ORDERED: ACETAMINOPHEN TAB 650MG DOSE (2X325MG) PO PRN (19:00)
[2017-01-13] MEDS: OLANZapine 5 MG TAB PO SCH (21:48)
[2017-01-13] MEDS: miSOPROStol 200 MCG TAB (S0191) PO SCH (21:48)
[2017-01-13] MEDS: THIAMINE 100 MG TAB PO SCH (21:49)
[2017-01-14 06:00] VITALS: BP 115/59
[2017-01-14] MEDS: NICOTINE 14 MG/24 HR TRANSDERMAL TD SCH (09:00)
[2017-01-14] MEDS: OLANZapine 5 MG TAB PO SCH (09:06)
[2017-01-14] MEDS: VENLAFAXINE **XR** 75MG CAPSULE PO SCH (09:06)
[2017-01-14] MEDS: THIAMINE 100 MG TAB PO SCH ×2 (09:06→20:14)
[2017-01-14] MEDS: FOLIC ACID 1 MG TAB PO SCH (09:06)
[2017-01-14] MEDS: MONTELUKAST 10 MG TAB PO SCH (09:06)
[2017-01-14] MEDS: MULTIVITAMINS/MINERALS THERAP 1 TAB PO SCH (09:06)
[2017-01-14] MEDS: miSOPROStol 200 MCG TAB (S0191) PO SCH ×4 (09:07→20:13)
--- NOTE | 2017-01-14 09:19 | HPEPDOC ---
[facility] Medical History & Physical Date of Admission Jan 13, 2017 History and Physical PCP: Dr Lamont Sellers ATTENDING: Dr. Claude Middleton HPI: 31 yo F admitted to [facility] for unspecified depressive disorder, being medically examined today. No acute medical complaints today. Patient is reluctant to provide history. Denies any fevers, chills, weakness, fatigue, BARRETT, CP, SOB, cough, palpitations, abdominal pain, N/V/D or changes in bowel or bladder habits. PMHx: Allergic rhinitis Iron deficiency anemia GERD Substance use Anxiety Depression Bipolar disorder History of obesity, status post gastric bypass procedure. BMI 23.9 History of hypertension and dyslipidemia resolved after gastric bypass procedure. PSHX: Gastric bypass Cholecystectomy 3 D&C SOCHX: Resides in: [facility] Marital Status: Kids: 3 Employment: Unemployed Tobacco use: One half pack per week ETOH: 2-3 times per week, 2-10 drinks Illicit Drugs: History of marijuana, cocaine, Percocet IV Drug Use: Denies Tattoos done unprofessionally: Denies FAMHX: Mother: Alive, hypertension, dyslipidemia Father: Unknown Siblings: 2 brothers Alive, well Children: Alive, well Unexpected deaths due to medical reasons: None. ROS: As noted in HPI, otherwise 11pt ROS of systems reviewed and remarkable only for LMP 12/13/16. PE: GEN: 31 yo F, appears stated age. Well-nourished, well developed. No acute distress. Alert and oriented x 3. Agitated at times, avoids eye contact, reluctant to provide history. HEENT: Normocephalic, atraumatic. Pupils are equal, round, and reactive to light. Extraocular movements are intact. No nystagmus appreciated. Sclera are nonicteric. Conjunctiva without injection. Nose midline. Nasal turbinates without bogginess. EACs both patent BL. TMs both visualized and gonzalez with good cone of light, no bulging or erythema. No facial asymmetry. Moist mucous membranes. Dentition fair. Pharynx pink and moist, no cobblestoning. Neck supple , trachea midline. No lymphadenopathy or thyromegaly appreciated. CHEST: Regular rate and rhythm, +S1, +S2 LUNGS: Clear to auscultation bilaterally. No wheezes, rales, or rhonchi. Breathing appears symmetric and easy. Patient is speaking in full sentences. No accessory muscle use. ABD: Round, soft, non-tender, non-distended. +Bowel sounds throughout. No rebound or guarding. No costovertebral angle tenderness. EXT: Pulses 2+ bilaterally dorsalis pedis and radial. No lower extremity edema appreciated. SKIN: [place], dry, warm. Capillary refill <2sec. No rashes. NEURO: Alert and oriented x 3. Cranial nerves III-XII are intact. No focal deficits appreciated. EKG: Pending A&P: 31 yo F admitted to [facility] for unspecified depressive disorder 1. Psych. Plan per Psychiatry. Obtain baseline EKG to assure the safety of psychiatric medications as they can prolong the QT interval. 2. Nicotine dependence. Patch available. 3. GERD. Continue Misoprostol 200 g by mouth 4 times a day, Prilosec 20 mg by mouth twice a day. 4. Follow up with PCP on discharge. 5. Substance use. Per psychiatry. Continue multivitamin, thiamine, folic acid supplements. 6. History of iron deficiency anemia. Continue iron supplement. Hemoglobin is noted to be 12.0. 7. Allergic rhinitis. Continue seeing either 10 mg by mouth daily. 8. Abnormal TSH. Recheck TFTs in a.m. 9. Staff member Tejal GODOY present throughout exam. Vital Signs Vital Signs Date Time Temp Pulse Resp B/P (MAP) Pulse Ox O2 Delivery O2 Flow Rate FiO2 01/14/17 06:00 99.8 66 17 115/59 (77) 97 01/13/17 17:16 Room Air Laboratory Data Labs 24H Laboratory Tests 2 01/13/17 12:54: Nucleated Red Blood Cells % (auto) 0.0, Anion Gap 7L, Glomerular Filtration Rate > 60.0, Calcium Level 9.1, Aspartate Amino Transf (AST/SGOT) 9, Alanine Aminotransferase (ALT/SGPT) 19, Alkaline Phosphatase 77, Total Bilirubin 0.3, Direct Bilirubin 0.1, Total Creatine Kinase 39, Total Protein 6.7, Albumin 3.7, Albumin/Globulin Ratio 1.23, Thyroid Stimulating Hormone (TSH) 0.233L, Human Chorionic Gonadotropin, Qual NEGATIVE, Salicylates Level 3.9L, Urine Amphetamines Screen NEGATIVE, Urine Benzodiazepines Screen NEGATIVE, Urine Opiates Screen NEGATIVE, Urine Methadone Screen NEGATIVE, Acetaminophen Level < 2.0L, Urine Barbiturates Screen NEGATIVE, Urine Phencyclidine Screen NEGATIVE, Urine Cocaine Metabolite Screen POSITIVEH, Urine Cannabinoids Screen NEGATIVE, Ethyl Alcohol Level < 0.003 CBC/BMP Laboratory Tests 01/13/17 12:54 Red Blood Count 3.91 L, Mean Corpuscular Volume 94.4, Mean Corpuscular Hemoglobin 30.7, Mean Corpuscular Hemoglobin Concent 32.5, Red Cell Distribution Width 13.4 Home Medications Scheduled (Folic Acid) 800 Mcg Cap, 800 MCG PO DAILY (Iron) 325 Mg Tab, 325 MG PO DAILY Biotin (Vitamin H) (Biotin) Unknown Strength Cap, Unknown Dose PO DAILY Cholecalciferol (Vitamin D) 5,000 Unit Tab, 5,000 UNIT PO DAILY Misoprostol (Misoprostol) 200 Mcg Tab, 200 MCG PO QID Montelukast Sodium (Montelukast Sodium) 10 Mg Tab, 10 MG PO DAILY Multivitamins *[facility] STOCKED* (Thera M Plus *[facility] STOCK[facility]*) 1 Tab Tab, 1 TAB PO DAILY Olanzapine (Olanzapine) 5 Mg Tab, 5 MG PO BID Omeprazole (Omeprazole) 20 Mg Cap, 20 MG PO BID Venlafaxine Hydrochloride (Venlafaxine HCl ER) 150 Mg Cap, 150 MG PO DAILY Allergies Coded Allergies: Amoxicillin (Verified Allergy, Mild, RASH, 03/31/16) Clavulanic Acid (Verified Allergy, Mild, RASH, 03/31/16) NSAIDs (Verified Adverse Reaction, Mild, 01/13/17) due to gastic bypass Nuzhat Poole Jan 14, 2017 09:19
[2017-01-14 10:35] VITALS: BP 120/70
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
--- NOTE | 2017-01-14 14:11 | ECGEPIP ---
Stationary ECG Study [facility] - ED Test Date: 2017-01-13 Pat Name: DIEUDONNE NOYOLA Department: Room: - Gender: F Filing Or Registry Clerk: steven : 1985 Requested By: Allyson Love Order Number: [id number] Reading MD: Allyson Love Measurements Intervals [place] Rate: 59 P: 47 CT: 158 QRS: 64 QRSD: 85 T: 42 QT: 425 QTc: 422 Interpretive Statements SINUS BRADYCARDIA NO PRIOR FOR COMPARISON Electronically Signed On 01-14-2017 14:11:07 EST by Allyson Love
[2017-01-14 18:00] VITALS: BP 120/70
--- NOTE | 2017-01-15 01:09 | ECGEPIP ---
Stationary ECG Study [facility] Test Date: 2017-01-14 Pat Name: DIEUDONNE NOYOLA Department: Room: [place] [address] Gender: F Analytical Tech: SHEYLA : 1985 Requested By: Nuzhat Poole Order Number: [id number] Reading MD: Scott Petersen Measurements Intervals [place] Rate: 68 P: -17 RI: 134 QRS: 63 QRSD: 89 T: 41 QT: 384 QTc: 410 Interpretive Statements SINUS RHYTHM Prior tracing on 01/13/2017 at 12:40:17. Heart rate was slower otherwise no significant changes. There was then better R-wave progression Electronically Signed On 01-15-2017 1:08:56 EST by Scott Petersen
[2017-01-15 06:35] VITALS: BP 123/67
[2017-01-15] MEDS: FOLIC ACID 1 MG TAB PO SCH (08:59)
[2017-01-15] MEDS: MULTIVITAMINS/MINERALS THERAP 1 TAB PO SCH (09:00)
[2017-01-15] MEDS: THIAMINE 100 MG TAB PO SCH ×2 (09:00→21:00)
[2017-01-15] MEDS: NICOTINE 14 MG/24 HR TRANSDERMAL TD SCH (09:00)
[2017-01-15] MEDS: MONTELUKAST 10 MG TAB PO SCH (09:00)
[2017-01-15] MEDS: miSOPROStol 200 MCG TAB (S0191) PO SCH ×4 (09:00→21:00)
[2017-01-15] MEDS: VENLAFAXINE **XR** 75MG CAPSULE PO SCH (09:01)
[2017-01-15] MEDS: OLANZapine 5 MG TAB PO PRN (09:02)
[2017-01-15 10:35] VITALS: BP 123/67
[2017-01-15 11:32] VITALS: BP 126/75
--- NOTE | 2017-01-15 15:15 | MHIPNPDOC ---
[facility] Progress Note Progress Note DATE OF SERVICE: 01/15/17 HISTORY: As per ED report: " Patient is a 31 -year-old , female, who states, "I'm a mess and I think it would be easier if I wasn't alive." Pt reports getting referred to ED for poor decision making, vague SI, and unable to CFS at the clinic. States she's been abusing Opiates(Percocet) and Cocaine for awhile, and reports cheating on her while having 3 children(ages 1, 3, and 11) at home. Interview was limited due to the severity of pt's distress, crying hysterically throughout evaluation. She denies abusing drugs in the presence of children and is never under the influence while her children are present, however is here for help. She continues to request hospitalization and states, "I'm a disaster and I have alot of problems" and has been self- medicating to help cope. Admits her parents were alcoholics and never were home which caused her to feel isolated. States her Grandmother killed herself 3 years ago by OD. States she tried to kill herself by cutting as a teenager, but was never hospitalized. Pt fears her depression is going to get worse, therefore is unable to CFS." Interval history 01/15/2017: Patient says she is doing "fine". She is annoyed, irritated initially on interview but becomes more cooperative as interview progresses. She says she feels tired, but the same before starting her medications. She denies other side effects of her medications. She says she slept more than 8 hours last night and her appetite is "good". Says she talked to her dad/ want her to go to rehabilitation. She seems annoyed to go to rehabilitation however she says that she is "willing". She has no more further questions or concerns when asked. VITAL SIGNS: See below. NEW TEST RESULTS: None CURRENT MEDICATIONS: See below. MENTAL STATUS EXAMINATION: Patient is a 31-year old female, who is in [facility] with fair hygiene, somewhat cooperative, minimal eye contact. Speech: Is nonspontaneous, decreased in rate/rhythm and volume Language skills are fair Thought processes including: Linear, logical. Thought content: Denies suicidal ideations, auditory or visual hallucinations, paranoia, manic symptoms, or other distortions of perception. Abstract reasoning, and computation: Intact Description of associations: Intact Description of abnormal or psychotic thoughts: Guarded and paranoid. Judgment: Poor Insight: Poor Orientation: A/O 3 Recent and remote memory: Fair Attention span and concentration: Poor Language: Inappropriate Fund of knowledge: Below average Mood: "fine, alright" Affect: Irritable/agitated, constricted, mood-incongruent, appropriate. DIAGNOSES: 1. Unspecified bipolar disorder 2. Polysubstance use disorder 3. Cluster B personality traits ASSESSMENT: Patient is a 31-year-old female who is guarded, avoidant, irritable however somewhat cooperative. She says her condition has not changed since starting treatment and she has not had any side effects from medications apart from mild lethargy. She seems to have insight into the fact that she needs to have rehabilitation or drug use, however is unenthusiastic about the proposition. Overall she says she is "willing" to go. She denies suicidal ideations, auditory or visual hallucinations, paranoia, manic symptoms, or other distortions of perception. MANAGEMENT PLAN: Continue with same medications/treatment plan. Monitor for medication side effects. Monitor for safety. TIME SPENT: 20 minutes. Vital Signs Vital Signs Date Time Temp Pulse Resp B/P (MAP) Pulse Ox O2 Delivery O2 Flow Rate FiO2 01/15/17 11:32 98.7 63 16 126/75 (92) 01/14/17 06:00 97 01/13/17 17:16 Room Air Laboratory Data 24H Labs Laboratory Tests 2 01/15/17 06:46: Thyroid Stimulating Hormone (TSH) 0.458, Free Thyroxine Index 1.8, Thyroxine (T4 ) 5.0, Triiodothyronine (T3) Uptake 35 Current Medications Current Medications Acetaminophen (Tylenol Tab) 650 mg Q6HP PRN PO HEADACHE or DISCOMFORT; Start 01/13/17 at 19:00; Stop 02/12/17 at 18:59 Al Hydrox/Mg Hydrox/Simethicone (Mylanta) 30 ml Q4HP PRN PO HEARTBURN/ INDIGESTION; Start 01/13/17 at 19:00; Stop 02/12/17 at 18:59 Aripiprazole (AbiLIFY) 2.5 mg QHS PO Last administered on 01/14/17t 20:14; Start 01/14/17 at 21:00; Stop 02/13/17 at 20:59 Folic Acid (Folic Acid) 1 mg DAILY PO Last administered on 01/15/17 08:59; Start 01/14/17 at 09:00; Stop 02/13/17 at 08:59 Home Med (Med Rec Complete!) ASDIRECTED XX ; Start 01/13/17 at 15:45; Stop at 15:45; Status DC Lorazepam (Ativan) 1 mg BIDP PRN PO ANXIETY; Start 01/13/17 at 19:00; Stop at 18:59 Lorazepam (Ativan) 2 mg ASDIRECTED PRN PO SEE PROTOCOL; Start 01/13/17 at 19: 00; Stop 01/20/17 at 18:59 Magnesium Hydroxide (Milk Of Magnesia) 30 ml DAILYPRN PRN PO CONSTIPATION; Start 01/13/17 at 19:00; Stop 02/12/17 at 18:59 Misoprostol (Cytotec) 200 mcg QID PO Last administered on 01/15/17 12:58; Start 01/13/17 at 21:00; Stop 02/12/17 at 20:59 Montelukast Sodium (Singulair) 10 mg DAILY PO Last administered on 01/15/17 09:00; Start 01/14/17 at 09:00; Stop 02/13/17 at 08:59 Multivitamins (Theragram-M) 1 tab DAILY PO Last administered on 01/15/17 09: 00; Start 01/14/17 at 09:00; Stop 02/13/17 at 08:59 Nicotine (Nicoderm Cq 14mg) 1 patch DAILY TD ; Start 01/14/17 at 09:00; Stop 02/13/17 at 08:59 Olanzapine (ZyPREXA) 5 mg BID PO Last administered on 01/14/17 09:06; Start 01/13/17 at 21:00; Stop 01/14/17 at 14:05; Status DC Olanzapine (ZyPREXA) 5 mg BID PRN PO AGITATION Last administered on 01/15/17 09:02; Start 01/14/17 at 14:00; Stop 02/13/17 at 13:59 Thiamine HCl (Thiamine HCl) 100 mg BID PO Last administered on 01/15/17 09:00 ; Start 01/13/17 at 21:00; Stop 01/16/17 at 09:01 Venlafaxine HCl (Effexor Xr) 150 mg DAILY PO Last administered on 09:01; Start 01/14/17 at 09:00; Stop 02/13/17 at 08:59 Allergies Coded Allergies: Amoxicillin (Verified Allergy, Mild, RASH, 03/31/16) Clavulanic Acid (Verified Allergy, Mild, RASH, 03/31/16) NSAIDs (Verified Adverse Reaction, Mild, 01/13/17) due to gastic bypass MADAI BANEGAS PGY-1 Jan 15, 2017 15:15
[2017-01-15 18:00] VITALS: BP 143/73
[2017-01-15] MEDS: MAALOX 30 ML SUSP *UDC PO PRN (19:27)
[2017-01-15 21:00] VITALS: BP 128/70
[2017-01-16 06:37] VITALS: BP 123/70
[2017-01-16] MEDS ORDERED: GABAPENTIN 100 MG CAP PO SCH (09:00)
[2017-01-16] MEDS: NICOTINE 14 MG/24 HR TRANSDERMAL TD SCH (09:00)
[2017-01-16] MEDS ORDERED: CitaloPRAM (CeleXA) 20 MG TAB PO SCH (09:00)
[2017-01-16] MEDS: MONTELUKAST 10 MG TAB PO SCH (09:20)
[2017-01-16] MEDS: miSOPROStol 200 MCG TAB (S0191) PO SCH ×4 (09:20→20:53)
[2017-01-16] MEDS: FOLIC ACID 1 MG TAB PO SCH (09:20)
[2017-01-16] MEDS: MULTIVITAMINS/MINERALS THERAP 1 TAB PO SCH (09:20)
[2017-01-16] MEDS: THIAMINE 100 MG TAB PO SCH (09:20)
[2017-01-16] MEDS: VENLAFAXINE **XR** 75MG CAPSULE PO SCH (09:20)
[2017-01-16] MEDS: MAALOX 30 ML SUSP *UDC PO PRN (10:16)
[2017-01-16 10:18] VITALS: BP 128/78
[2017-01-16 10:19] VITALS: BP 128/78
[2017-01-16] MEDS: OMEPRAZOLE 20 MG CAP PO SCH ×2 (11:40→20:52)
--- NOTE | 2017-01-16 12:03 | MHIPNPDOC ---
[facility] Progress Note Progress Note DATE OF SERVICE: 01/16/17 HISTORY: As per ED report: " Patient is a 31 -year-old , female, who states, "I'm a mess and I think it would be easier if I wasn't alive." Pt reports getting referred to ED for poor decision making, vague SI, and unable to CFS at the clinic. States she's been abusing Opiates(Percocet) and Cocaine for awhile, and reports cheating on her while having 3 children(ages 1, 3, and 11) at home. Interview was limited due to the severity of pt's distress, crying hysterically throughout evaluation. She denies abusing drugs in the presence of children and is never under the influence while her children are present, however is here for help. She continues to request hospitalization and states, "I'm a disaster and I have alot of problems" and has been self- medicating to help cope. Admits her parents were alcoholics and never were home which caused her to feel isolated. States her Grandmother killed herself 3 years ago by OD. States she tried to kill herself by cutting as a teenager, but was never hospitalized. Pt fears her depression is going to get worse, therefore is unable to CFS." VITAL SIGNS: See below. NEW TEST RESULTS: N/A CURRENT MEDICATIONS: See below. MENTAL STATUS EXAMINATION: Patient is a 31-year old female, who is dressed in personal clothes, with good hygiene and grooming, good eye contact, cooperative Speech: Spontaneous and fluent Language skills are fair Thought processes including: Linear, logical. Thought content: Denies auditory or visual hallucinations, denies thought delusions and denies homicidal or suicidal ideation Abstract reasoning, and computation: Good Description of associations: Good Description of abnormal or psychotic thoughts: She is less guarded, she didn't endorse any paranoid thoughts today but she admitted to overwhelming feelings of guilt because she cheated on her . Judgment: Poor Insight: Poor Orientation: Oriented 3 Recent and remote memory: Fair Attention span and concentration: Poor Language: Inappropriate Fund of knowledge: Fair Mood: "I'm better now" Affect: Sad, depressed DIAGNOSES: 1. Unspecified bipolar disorder 2. PTSD 3. . ASSESSMENT: Patient continues to be depressed but she is less guarded and less paranoid. She is insightful about her illness, she feels guilty about her infidelity and is willing to work on her marriage because she would like to remain to her . She is interested in marriage counseling and she is very optimistic about going into a substance abuse treatment program. MANAGEMENT PLAN: Will increase Abilify to 2.5 mg twice a day TIME SPENT: 30 minutes. Vital Signs Vital Signs Date Time Temp Pulse Resp B/P (MAP) Pulse Ox O2 Delivery O2 Flow Rate FiO2 01/16/17 10:19 98.8 70 16 128/78 (95) 01/14/17 06:00 97 01/13/17 17:16 Room Air Current Medications Current Medications Acetaminophen (Tylenol Tab) 650 mg Q6HP PRN PO HEADACHE or DISCOMFORT; Start 01/13/17 at 19:00; Stop 02/12/17 at 18:59 Al Hydrox/Mg Hydrox/Simethicone (Mylanta) 30 ml Q4HP PRN PO HEARTBURN/ INDIGESTION Last administered on 01/16/17 10:16; Start 01/13/17 at 19:00; Stop 02/12/17 at 18:59 Aripiprazole (AbiLIFY) 2.5 mg QHS PO Last administered on 01/14/17 20:14; Start 01/14/17 at 21:00; Stop 02/13/17 at 20:59 Folic Acid (Folic Acid) 1 mg DAILY PO Last administered on 01/16/17 09:20; Start 01/14/17 at 09:00; Stop 02/13/17 at 08:59 Home Med (Med Rec Complete!) ASDIRECTED XX ; Start 01/13/17 at 15:45; Stop at 15:45; Status DC Lorazepam (Ativan) 1 mg BIDP PRN PO ANXIETY; Start 01/13/17 at 19:00; Stop at 18:59 Lorazepam (Ativan) 2 mg ASDIRECTED PRN PO SEE PROTOCOL; Start 01/13/17 at 19: 00; Stop 01/20/17 at 18:59 Magnesium Hydroxide (Milk Of Magnesia) 30 ml DAILYPRN PRN PO CONSTIPATION; Start 01/13/17 at 19:00; Stop 02/12/17 at 18:59 Misoprostol (Cytotec) 200 mcg QID PO Last administered on 01/16/17 09:20; Start 01/13/17 at 21:00; Stop 02/12/17 at 20:59 Montelukast Sodium (Singulair) 10 mg DAILY PO Last administered on 01/16/17 09:20; Start 01/14/17 at 09:00; Stop 02/13/17 at 08:59 Multivitamins (Theragram-M) 1 tab DAILY PO Last administered on 01/16/17 09: 20; Start 01/14/17 at 09:00; Stop 02/13/17 at 08:59 Nicotine (Nicoderm Cq 14mg) 1 patch DAILY TD ; Start 01/14/17 at 09:00; Stop 02/13/17 at 08:59 Olanzapine (ZyPREXA) 5 mg BID PO Last administered on 01/14/17 09:06; Start 01/13/17 at 21:00; Stop 01/14/17 at 14:05; Status DC Olanzapine (ZyPREXA) 5 mg BID PRN PO AGITATION Last administered on 01/15/17 09:02; Start 01/14/17 at 14:00; Stop 02/13/17 at 13:59 Omeprazole (PriLOSEC) 20 mg BID PO Last administered on 01/16/17 11:40; Start 01/16/17 at 09:00; Stop 02/15/17 at 08:59 Thiamine HCl (Thiamine HCl) 100 mg BID PO Last administered on 01/16/17 09:20 ; Start 01/13/17 at 21:00; Stop 01/16/17 at 09:01; Status DC Venlafaxine HCl (Effexor Xr) 150 mg DAILY PO Last administered on 09:20; Start 01/14/17 at 09:00; Stop 02/13/17 at 08:59 Allergies Coded Allergies: Amoxicillin (Verified Allergy, Mild, RASH, 03/31/16) Clavulanic Acid (Verified Allergy, Mild, RASH, 03/31/16) NSAIDs (Verified Adverse Reaction, Mild, 01/13/17) due to gastic bypass BASIL CHOW MD Jan 16, 2017 12:03
[2017-01-16] MEDS ORDERED: OLAN5TAB PO (13:38)
[2017-01-16] MEDS ORDERED: DIPH50CA PO (13:38)
[2017-01-16] MEDS ORDERED: VENL75CA47 PO (13:38)
[2017-01-16] MEDS ORDERED: ARIP10TAB PO (13:41)
[2017-01-16 18:20] VITALS: BP 119/76
[2017-01-17 06:41] VITALS: BP 113/63
[2017-01-17 08:00] VITALS: BP 113/63
[2017-01-17] MEDS: miSOPROStol 200 MCG TAB (S0191) PO SCH ×4 (08:25→20:09)
[2017-01-17] MEDS: MULTIVITAMINS/MINERALS THERAP 1 TAB PO SCH (08:26)
[2017-01-17] MEDS: NICOTINE 14 MG/24 HR TRANSDERMAL TD SCH (08:26)
[2017-01-17] MEDS: MONTELUKAST 10 MG TAB PO SCH (08:26)
[2017-01-17] MEDS: OMEPRAZOLE 20 MG CAP PO SCH ×2 (08:26→20:09)
[2017-01-17] MEDS: FOLIC ACID 1 MG TAB PO SCH (08:26)
[2017-01-17] MEDS: VENLAFAXINE **XR** 75MG CAPSULE PO SCH (08:26)
[2017-01-17] MEDS ORDERED: VENLAFAXINE **XR** 75MG CAPSULE PO SCH (09:00)
[2017-01-17] MEDS: GABAPENTIN 100 MG CAP PO SCH ×3 (09:00→20:09)
[2017-01-17] MEDS ORDERED: GABA-279 PO (11:01)
--- NOTE | 2017-01-17 11:15 | MHIPNPDOC ---
[facility] Progress Note Progress Note DATE OF SERVICE: 01/17/17 HISTORY: As per ED report: " Patient is a 31 -year-old , female, who states, "I'm a mess and I think it would be easier if I wasn't alive." Pt reports getting referred to ED for poor decision making, vague SI, and unable to CFS at the clinic. States she's been abusing Opiates(Percocet) and Cocaine for awhile, and reports cheating on her while having 3 children(ages 1, 3, and 11) at home. Interview was limited due to the severity of pt's distress, crying hysterically throughout evaluation. She denies abusing drugs in the presence of children and is never under the influence while her children are present, however is here for help. She continues to request hospitalization and states, "I'm a disaster and I have alot of problems" and has been self- medicating to help cope. Admits her parents were alcoholics and never were home which caused her to feel isolated. States her Grandmother killed herself 3 years ago by OD. States she tried to kill herself by cutting as a teenager, but was never hospitalized. Pt fears her depression is going to get worse, therefore is unable to CFS." VITAL SIGNS: See below. NEW TEST RESULTS: N/A CURRENT MEDICATIONS: See below. MENTAL STATUS EXAMINATION: Patient is a 31-year old female, who is dressed in personal clothes, a little sad today, with fair eye contact Speech: Spontaneous and fluent Language skills are fair Thought processes including: Linear, logical. Thought content: Denies auditory or visual hallucinations, denies thought delusions and denies homicidal or suicidal ideation Abstract reasoning, and computation: Good Description of associations: Good Description of abnormal or psychotic thoughts: She feels a little bit more depressed today because she heard that she will be able to see her oldest children, ages 11 and 3 from HER-2 previous husbands. Their bore miner operator are pushing for the father's to keep custody of the children because she said the hospital and apparently CPS has gotten involved. Her current and is not fighting for the custody of the baby and he is being very supportive of her. She has anxious and depressed thoughts about the separation from her children and not being able to talk to them over the phone. Judgment: Poor Insight: Poor Orientation: Oriented 3 Recent and remote memory: Fair Attention span and concentration: Poor Language: Good Fund of knowledge: Fair Mood: "I'm feeling low today because there are not allowing me to speak to my children " Affect: Sad, depressed DIAGNOSES: 1. Unspecified bipolar disorder 2. PTSD 3. Borderline Personality disorder ASSESSMENT: Patient says the bore miner operator of HER-2 previous husbands are advising them to keep legal custody of the children she had with them, ages 11 and 3. Patient says she knew they were going to do this because she is not at home now , she said the hospital but still she never expected that they wouldn't allow her to talk to them on the phone and when she called this morning to talk to one of her kids, she was denied that right. We discussed this issue and agreed she needs to have an increase in venlafaxine and I will add gabapentin to her medications to help her with anxiety and mood stabilization. Patient is going to rehabilitation on Thursday . Vital Signs Vital Signs Date Time Temp Pulse Resp B/P (MAP) Pulse Ox O2 Delivery O2 Flow Rate FiO2 01/17/17 06:41 97.5 70 18 113/63 (80) Room Air 01/14/17 06:00 97 Current Medications Current Medications Acetaminophen (Tylenol Tab) 650 mg Q6HP PRN PO HEADACHE or DISCOMFORT; Start 01/13/17 at 19:00; Stop 02/12/17 at 18:59 Al Hydrox/Mg Hydrox/Simethicone (Mylanta) 30 ml Q4HP PRN PO HEARTBURN/ INDIGESTION Last administered on 01/16/17 10:16; Start 01/13/17 at 19:00; Stop 02/12/17 at 18:59 Aripiprazole (AbiLIFY) 2.5 mg BID PO ; Start 01/16/17 at 21:00; Stop 01/16/17 at 21:00; Status DC Aripiprazole (AbiLIFY) 2.5 mg QHS PO Last administered on 01/14/17 20:14; Start 01/14/17 at 21:00; Stop 01/16/17 at 11:50; Status DC Aripiprazole (AbiLIFY) 5 mg BID PO Last administered on 01/17/17 08:26; Start 01/16/17 at 21:00; Stop 02/15/17 at 20:59 Aripiprazole (AbiLIFY) 7.5 mg BID PO ; Start 01/16/17 at 21:00; Stop 01/16/17 at 21:00; Status DC Citalopram Hydrobromide (CeleXA) 20 mg DAILY PO ; Start 01/16/17 at 09:00; Stop 02/15/17 at 08:59; Status Cancel Diphenhydramine HCl (Benadryl) 50 mg BIDP PRN PO MUSCLE SPASMS; Start at 12:30; Stop 02/15/17 at 12:29 Folic Acid (Folic Acid) 1 mg DAILY PO Last administered on 01/17/17 08:26; Start 01/14/17 at 09:00; Stop 02/13/17 at 08:59 Gabapentin (Neurontin) 100 mg BID PO Last administered on 01/16/17 12:37; Start 01/16/17 at 09:00; Stop 01/16/17 at 13:06; Status DC Gabapentin (Neurontin) 100 mg TID PO ; Start 01/17/17 at 16:00; Stop 02/16/17 at 15:59; Status UNV Home Med (Med Rec Complete!) ASDIRECTED XX ; Start 01/13/17 at 15:45; Stop at 15:45; Status DC Lorazepam (Ativan) 1 mg BIDP PRN PO ANXIETY Last administered on 01/16/17 20: 52; Start 01/13/17 at 19:00; Stop 01/20/17 at 18:59 Lorazepam (Ativan) 2 mg ASDIRECTED PRN PO SEE PROTOCOL; Start 01/13/17 at 19: 00; Stop 01/20/17 at 18:59 Magnesium Hydroxide (Milk Of Magnesia) 30 ml DAILYPRN PRN PO CONSTIPATION; Start 01/13/17 at 19:00; Stop 02/12/17 at 18:59 Misoprostol (Cytotec) 200 mcg QID PO Last administered on 01/17/17 08:25; Start 01/13/17 at 21:00; Stop 02/12/17 at 20:59 Montelukast Sodium (Singulair) 10 mg DAILY PO Last administered on 01/17/17 08:26; Start 01/14/17 at 09:00; Stop 02/13/17 at 08:59 Multivitamins (Theragram-M) 1 tab DAILY PO Last administered on 01/17/17 08: 26; Start 01/14/17 at 09:00; Stop 02/13/17 at 08:59 Nicotine (Nicoderm Cq 14mg) 1 patch DAILY TD ; Start 01/14/17 at 09:00; Stop 02/13/17 at 08:59 Olanzapine (ZyPREXA) 5 mg BID PO Last administered on 01/14/17 09:06; Start 01/13/17 at 21:00; Stop 01/14/17 at 14:05; Status DC Olanzapine (ZyPREXA) 5 mg BID PRN PO AGITATION Last administered on 01/15/17 09:02; Start 01/14/17 at 14:00; Stop 02/13/17 at 13:59 Omeprazole (PriLOSEC) 20 mg BID PO Last administered on 01/17/17 08:26; Start 01/16/17 at 09:00; Stop 02/15/17 at 08:59 Thiamine HCl (Thiamine HCl) 100 mg BID PO Last administered on 01/16/17 09:20 ; Start 01/13/17 at 21:00; Stop 01/16/17 at 09:01; Status DC Venlafaxine HCl (Effexor Xr) 150 mg DAILY PO Last administered on 09:20; Start 01/14/17 at 09:00; Stop 01/16/17 at 12:26; Status DC Venlafaxine HCl (Effexor Xr) 150 mg DAILY PO Last administered on 08:26; Start 01/17/17 at 09:00; Stop 02/16/17 at 08:59 Venlafaxine HCl (Effexor Xr) 150 mg QAM PO ; Start 01/17/17 at 09:00; Stop 01/17/17 at 09:00; Status DC Allergies Coded Allergies: Amoxicillin (Verified Allergy, Mild, RASH, 03/31/16) Clavulanic Acid (Verified Allergy, Mild, RASH, 03/31/16) NSAIDs (Verified Adverse Reaction, Mild, 01/13/17) due to gastic bypass BASIL CHOW MD Jan 17, 2017 11:14
[2017-01-17 18:00] VITALS: BP 134/76
[2017-01-17] MEDS: diphenhydrAMINE 50 MG CAP PO PRN (20:15)
[2017-01-18 06:26] VITALS: BP 121/58
[2017-01-18] MEDS: GABAPENTIN 100 MG CAP PO SCH ×3 (08:20→21:56)
[2017-01-18] MEDS: MONTELUKAST 10 MG TAB PO SCH (08:21)
[2017-01-18] MEDS: VENLAFAXINE **XR** 75MG CAPSULE PO SCH (08:21)
[2017-01-18] MEDS: NICOTINE 14 MG/24 HR TRANSDERMAL TD SCH (08:21)
[2017-01-18] MEDS: OMEPRAZOLE 20 MG CAP PO SCH ×2 (08:21→21:56)
[2017-01-18] MEDS: MULTIVITAMINS/MINERALS THERAP 1 TAB PO SCH (08:21)
[2017-01-18] MEDS: miSOPROStol 200 MCG TAB (S0191) PO SCH ×4 (08:21→21:56)
[2017-01-18] MEDS: FOLIC ACID 1 MG TAB PO SCH (08:21)
[2017-01-18] MEDS: OLANZapine 5 MG TAB PO PRN (16:23)
[2017-01-18 18:00] VITALS: BP 121/61
[2017-01-18 21:00] VITALS: BP 124/72
[2017-01-18] MEDS: diphenhydrAMINE 50 MG CAP PO PRN (21:56)
[2017-01-19 06:43] VITALS: BP 100/67
[2017-01-19] MEDS: OMEPRAZOLE 20 MG CAP PO SCH (08:45)
[2017-01-19] MEDS: GABAPENTIN 100 MG CAP PO SCH (08:45)
[2017-01-19] MEDS: VENLAFAXINE **XR** 75MG CAPSULE PO SCH (08:45)
[2017-01-19] MEDS: FOLIC ACID 1 MG TAB PO SCH (08:45)
[2017-01-19] MEDS: MULTIVITAMINS/MINERALS THERAP 1 TAB PO SCH (08:45)
[2017-01-19] MEDS: miSOPROStol 200 MCG TAB (S0191) PO SCH (08:45)
[2017-01-19] MEDS: MONTELUKAST 10 MG TAB PO SCH (08:45)
[2017-01-19] MEDS: NICOTINE 14 MG/24 HR TRANSDERMAL TD SCH (08:47)
--- NOTE | 2017-01-20 10:24 | MHDSPDOC ---
[facility] Discharge Summary Discharge Summary DATE OF ADMISSION: Jan 13, 2017 at 15:54 DATE OF DISCHARGE: Jan 19, 2017 at 10:25 DISCHARGE DIAGNOSES: 1. Unspecified bipolar disorder 2. PTSD 3. Borderline Personality disorder REASON FOR ADMISSION: As per ED report: " Patient is a 31 -year-old , female, who states, "I'm a mess and I think it would be easier if I wasn't alive." Pt reports getting referred to ED for poor decision making, vague SI, and unable to CFS at the clinic. States she's been abusing Opiates(Percocet) and Cocaine for awhile, and reports cheating on her while having 3 children(ages 1, 3, and 11) at home. Interview was limited due to the severity of pt's distress, crying hysterically throughout evaluation. She denies abusing drugs in the presence of children and is never under the influence while her children are present, however is here for help. She continues to request hospitalization and states, "I'm a disaster and I have alot of problems" and has been self-medicating to help cope. Admits her parents were alcoholics and never were home which caused her to feel isolated. States her Grandmother killed herself 3 years ago by OD. States she tried to kill herself by cutting as a teenager, but was never hospitalized. Pt fears her depression is going to get worse, therefore is unable to CFS." CONSULTANTS INVOLVED: TREATMENT AND PROGRESS ON THE UNIT : . HOSPITAL COURSE: DISCHARGE ASSESSMENT: MENTAL STATUS EXAMINATION ON DISCHARGE: Patient is a 31-year old female, who is dressed in personal clothes, with good eye contact, cooperative Speech: Normal in rate, tone and volume Language skills are fair Thought processes including: coherent Thought content: Denies auditory or visual hallucinations, denies thought delusions and denies homicidal or suicidal ideation Abstract reasoning, and computation: Good Description of associations: Good Description of abnormal or psychotic thoughts: Positive and optimistic thought s about going to Rehab. Judgment: Improved Insight: Improved Orientation: Oriented 3 Recent and remote memory: Fair Attention span and concentration: Fair Language: Good Fund of knowledge: Fair Mood: "I feel better" Affect: Euthymic, congruent with mood MEDICATIONS ON DISCHARGE: (Folic Acid) 800 Mcg Cap, 800 MCG PO DAILY, (Reported) (Iron) 325 Mg Tab, 325 MG PO DAILY, (Reported) Aripiprazole (Aripiprazole) 10 Mg Tab, 5 MG PO BID for BIPOLAR DISORDER, #4 tAKE HALF TABLET IN A.M. AND HALF TABLET QHS Biotin (Vitamin H) (Biotin) Unknown Strength Cap, Unknown Dose PO DAILY, ( Reported) Cholecalciferol (Vitamin D) 5,000 Unit Tab, 5,000 UNIT PO DAILY, (Reported) Gabapentin (Gabapentin) 100 Mg Cap, 100 MG PO TID for MOOD, #21 Misoprostol (Misoprostol) 200 Mcg Tab, 200 MCG PO QID, (Reported) Montelukast Sodium (Montelukast Sodium) 10 Mg Tab, 10 MG PO DAILY, (Reported) Multivitamins *[facility] STOCKED* (Thera M Plus *[facility]OCK[facility]*) 1 Tab Tab, 1 TAB PO DAILY, (Reported) Omeprazole (Omeprazole) 20 Mg Cap, 20 MG PO BID, (Reported) Venlafaxine HCl (Venlafaxine HCl ER) 75 Mg Capcr, 150 MG PO DAILY for DEPRESSION , #14 Venlafaxine Hydrochloride (Venlafaxine HCl ER) 150 Mg Cap, 150 MG PO DAILY, ( Reported) Scheduled PRN Diphenhydramine HCl (Diphenhydramine HCl) 50 Mg Cap, 50 MG PO BIDP PRN for MUSCLE SPASMS, #14 Olanzapine (Olanzapine) 5 Mg Tab, 5 MG PO BID PRN for BIPOLAR DISORDER, #14 PLAN/FOLLOWUP ARRANGEMENTS: Paige Mcgregor, Inpatient Rehab in [place] The amount of time spent in the coordination of care for this patient was approximately 30 minutes. Vital Signs/I&Os Vital Signs Date Time Temp Pulse Resp B/P (MAP) Pulse Ox O2 Delivery O2 Flow Rate FiO2 01/19/17 06:43 97.9 68 16 100/67 (78) 01/17/17 06:41 Room Air 01/14/17 06:00 97 Medications Scheduled (Folic Acid) 800 Mcg Cap, 800 MCG PO DAILY, (Reported) (Iron) 325 Mg Tab, 325 MG PO DAILY, (Reported) Aripiprazole (Aripiprazole) 10 Mg Tab, 5 MG PO BID for BIPOLAR DISORDER, #4 tAKE HALF TABLET IN A.M. AND HALF TABLET QHS Biotin (Vitamin H) (Biotin) Unknown Strength Cap, Unknown Dose PO DAILY, ( Reported) Cholecalciferol (Vitamin D) 5,000 Unit Tab, 5,000 UNIT PO DAILY, (Reported) Gabapentin (Gabapentin) 100 Mg Cap, 100 MG PO TID for MOOD, #21 Misoprostol (Misoprostol) 200 Mcg Tab, 200 MCG PO QID, (Reported) Montelukast Sodium (Montelukast Sodium) 10 Mg Tab, 10 MG PO DAILY, (Reported) Multivitamins *[facility] STOCK[facility]* (Thera M Plus *[facility]OCK[facility]*) 1 Tab Tab, 1 TAB PO DAILY, (Reported) Omeprazole (Omeprazole) 20 Mg Cap, 20 MG PO BID, (Reported) Venlafaxine HCl (Venlafaxine HCl ER) 75 Mg Capcr, 150 MG PO DAILY for DEPRESSION , #14 Venlafaxine Hydrochloride (Venlafaxine HCl ER) 150 Mg Cap, 150 MG PO DAILY, ( Reported) Scheduled PRN Diphenhydramine HCl (Diphenhydramine HCl) 50 Mg Cap, 50 MG PO BIDP PRN for MUSCLE SPASMS, #14 Olanzapine (Olanzapine) 5 Mg Tab, 5 MG PO BID PRN for BIPOLAR DISORDER, #14 Allergies Coded Allergies: Amoxicillin (Verified Allergy, Mild, RASH, 03/31/16) Clavulanic Acid (Verified Allergy, Mild, RASH, 03/31/16) NSAIDs (Verified Adverse Reaction, Mild, 01/13/17) due to gastic bypass BASIL CHOW MD Jan 20, 2017 10:24
== END 2017-01-19 10:25 | DRG 885 ==
LOC: M ED 12:08 → M ED INP 15:54 → M PSY 17:14
PROVIDERS: ADMIT Psychiatry & Neurology Psychiatry; ATTEND Psychiatry & Neurology Psychiatry
DX: F31.9 Bipolar disorder, unspecified (principal); F43.10 Post-traumatic stress disorder, unspecified; F60.3 Borderline personality disorder; Z79.899 Other long term (current) drug therapy; K21.9 Gastro-esophageal reflux disease without esophagitis; D50.9 Iron deficiency anemia, unspecified; J30.9 Allergic rhinitis, unspecified; F41.9 Anxiety disorder, unspecified; Z68.23 Body mass index [BMI] 23.0-23.9, adult; Z98.84 Bariatric surgery status; F17.200 Nicotine dependence, unspecified, uncomplicated; I10 Essential (primary) hypertension; E78.5 Hyperlipidemia, unspecified; Z88.0 Allergy status to penicillin; Z88.8 Allergy status to other drugs, medicaments and biological substances

== ENCOUNTER → 2017-02-04 | Outpatient (CLI) | payer OTHER ==
[~2017-02-04] MED LIST: ARIP10TAB PO; BIOT1CAP2 PO; Biotin PO; DIPH50CA PO; FOLI800C PO; GABA-279 PO; IRON65TA PO; MISO200T56 PO; MONT10TA2 PO; MULT1CHW39 PO; OLAN5TAB PO; OMEP20CA3 PO; SING10TA32 PO; VENL150C43 PO; VENL75CA47 PO; VITA500046 PO; VITMTA PO
== END ==
LOC: M OUTALCOH 07:40
PROVIDERS: ATTEND Psychiatry & Neurology Psychiatry
DX: F10.20 Alcohol dependence, uncomplicated (principal); F11.20 Opioid dependence, uncomplicated

== ENCOUNTER 2017-02-20 13:24 | Outpatient (RCR) | payer OTHER | END 2017-03-01 | LOC: M OUTALCOH 13:24 | DX: F14.20 Cocaine dependence, uncomplicated (principal); F11.20 Opioid dependence, uncomplicated; F10.20 Alcohol dependence, uncomplicated; F17.200 Nicotine dependence, unspecified, uncomplicated ==

== ENCOUNTER 2017-03-05 15:54 | Outpatient (RCR) | payer OTHER | END 2017-04-01 | LOC: M OUTALCOH 03-06 13:00 | DX: F14.20 Cocaine dependence, uncomplicated (principal); F11.20 Opioid dependence, uncomplicated; F10.20 Alcohol dependence, uncomplicated; F17.200 Nicotine dependence, unspecified, uncomplicated ==

== ENCOUNTER 2017-04-03 10:53 | Outpatient (RCR) | payer OTHER | END 2017-04-29 | LOC: M OUTALCOH 10:53 | DX: F14.20 Cocaine dependence, uncomplicated (principal); F11.20 Opioid dependence, uncomplicated; F10.20 Alcohol dependence, uncomplicated; F17.200 Nicotine dependence, unspecified, uncomplicated ==

== ENCOUNTER 2017-05-01 09:16 | Outpatient (RCR) | payer OTHER | END 2017-05-30 | LOC: M OUTALCOH 09:16 | DX: F14.20 Cocaine dependence, uncomplicated (principal); F11.20 Opioid dependence, uncomplicated; F10.20 Alcohol dependence, uncomplicated; F17.200 Nicotine dependence, unspecified, uncomplicated ==

== ENCOUNTER 2017-06-16 15:08 | Outpatient (RCR) | payer OTHER | END 2017-06-29 | LOC: M OUTALCOH 15:08 | DX: F14.20 Cocaine dependence, uncomplicated (principal); F11.20 Opioid dependence, uncomplicated; F10.20 Alcohol dependence, uncomplicated; F17.200 Nicotine dependence, unspecified, uncomplicated ==

== ENCOUNTER 2017-06-30 16:49 | Outpatient (RCR) | payer OTHER | END 2017-07-30 | LOC: M OUTALCOH 16:49 | DX: F14.20 Cocaine dependence, uncomplicated (principal); F11.20 Opioid dependence, uncomplicated; F10.20 Alcohol dependence, uncomplicated; F17.200 Nicotine dependence, unspecified, uncomplicated ==

== ENCOUNTER 2017-08-04 15:12 | Outpatient (RCR) | payer OTHER | END 2017-08-29 | LOC: M OUTALCOH 08-12 16:00 | DX: F14.20 Cocaine dependence, uncomplicated (principal); F11.20 Opioid dependence, uncomplicated; F10.20 Alcohol dependence, uncomplicated; F17.200 Nicotine dependence, unspecified, uncomplicated ==

== ENCOUNTER 2017-09-24 15:11 | Outpatient (RCR) | payer OTHER | END 2017-09-29 | LOC: M OUTALCOH 15:11 | DX: F14.20 Cocaine dependence, uncomplicated (principal); F11.20 Opioid dependence, uncomplicated; F10.20 Alcohol dependence, uncomplicated; F17.200 Nicotine dependence, unspecified, uncomplicated ==

== ENCOUNTER → 2017-12-07 | Outpatient (CLI) | payer OTHER | LOC: M OUTALCOH 07:52 | DX: Z13.89 Encounter for screening for other disorder (principal); F14.20 Cocaine dependence, uncomplicated ==

== ENCOUNTER 2017-12-21 13:00 | Outpatient (RCR) | payer OTHER | END 2017-12-30 | LOC: M OUTALCOH 13:00 | DX: F14.20 Cocaine dependence, uncomplicated (principal); F11.20 Opioid dependence, uncomplicated; F10.20 Alcohol dependence, uncomplicated; F17.200 Nicotine dependence, unspecified, uncomplicated ==

== ENCOUNTER 2018-01-06 15:00 | Outpatient (RCR) | payer OTHER | END 2018-01-29 | LOC: M OUTALCOH 01-12 10:05 | DX: F14.20 Cocaine dependence, uncomplicated (principal); F11.20 Opioid dependence, uncomplicated; F10.20 Alcohol dependence, uncomplicated; F17.200 Nicotine dependence, unspecified, uncomplicated ==

== ENCOUNTER 2018-02-25 16:00 | Outpatient (RCR) | payer OTHER ==
[~2018-02-25 16:00] MED LIST changes: +GABA-1171 PO; -GABA-279 PO
== END 2018-03-01 ==
LOC: M OUTALCOH 16:00
PROVIDERS: ATTEND Psychiatry & Neurology Psychiatry
DX: F14.20 Cocaine dependence, uncomplicated (principal); F11.20 Opioid dependence, uncomplicated; F10.20 Alcohol dependence, uncomplicated

== ENCOUNTER 2018-03-31 08:45 | Outpatient (RCR) | payer OTHER | END 2018-04-01 | LOC: M OUTALCOH 08:45 | PROVIDERS: ATTEND Psychiatry & Neurology Psychiatry | DX: F14.20 Cocaine dependence, uncomplicated (principal); F11.20 Opioid dependence, uncomplicated; F10.20 Alcohol dependence, uncomplicated ==

== ENCOUNTER 2018-04-12 10:26 | Outpatient (RCR) | payer OTHER | END 2018-04-29 | LOC: M OUTALCOH 10:26 | PROVIDERS: ATTEND Psychiatry & Neurology Psychiatry | DX: F14.20 Cocaine dependence, uncomplicated (principal); F11.20 Opioid dependence, uncomplicated; F10.20 Alcohol dependence, uncomplicated ==

== ENCOUNTER → 2018-05-28 | Outpatient (CLI) | payer OTHER | LOC: M OUTALCOH 08:21 | PROVIDERS: ATTEND Psychiatry & Neurology Psychiatry | DX: Z13.89 Encounter for screening for other disorder (principal); F11.20 Opioid dependence, uncomplicated ==

== ENCOUNTER 2018-06-25 07:57 | Outpatient (RCR) | payer OTHER ==
[~2018-06-25 07:57] MED LIST changes: -ARIP10TAB PO; +ARIP1TAB PO; -MULT1CHW39 PO; +MULT200T7 PO
== END 2018-06-29 ==
LOC: M OUTALCOH 07:57
PROVIDERS: ATTEND Psychiatry & Neurology Psychiatry
DX: F10.20 Alcohol dependence, uncomplicated (principal); F11.20 Opioid dependence, uncomplicated; F14.20 Cocaine dependence, uncomplicated; F17.200 Nicotine dependence, unspecified, uncomplicated

== ENCOUNTER → 2020-06-13 | Outpatient (REF) | payer OTHER ==
[~2020-06-13] MED LIST changes: +MONT10TA10 PO; -MONT10TA2 PO; +OMEP1CAP73 PO; -OMEP20CA3 PO
[2020-06-13 18:21] LABS: APPEARANCE, URINE CLOUDY (CLEAR); BACTERIA, URINE AUTO 1+ (NEGATIVE); BILIRUBIN, URINE AUTO NEGATIVE (NEGATIVE); BLOOD, URINE BLOOD 2+ (NEGATIVE); CALCIUM OXALATE CRYSTALS MODERATE; COLOR, URINE YELLOW (YELLOW); GLUCOSE, URINE (UA) AUTO NEGATIVE (NEGATIVE); KETONE, URINE AUTO NEGATIVE (NEGATIVE); LEUKOCYTE ESTERASE, URINE AUTO 2+ (NEGATIVE); MUCUS, URINE SMALL (NEGATIVE); NITRITE, URINE AUTO POSITIVE (NEGATIVE); PROTEIN, URINE AUTO 2+ mg/dL (NEGATIVE); RBC, URINE AUTO 52 /HPF (0-3); SPECIFIC GRAVITY URINE AUTO 1.019 (1.002-1.035); SQUAMOUS EPITHELIAL CELL UR AU 2 /HPF (0-6); WBC, URINE AUTO 46 /HPF (0-3)
== END ==
LOC: M LAB REF 16:58
PROVIDERS: ATTEND Physician Assistant Medical
DX: N39.0 Urinary tract infection, site not specified (principal)

== ENCOUNTER → 2020-08-24 | Outpatient (CLI) | payer OTHER ==
[~2020-08-24] MED LIST changes: +ACET-907 PO; +BUSP15TA47 PO; +CEPH25SS PO; +DOXE150C PO; +LACT20EL PO; +LATU20TA PO; +NICO14DI6 TD; +SUBO8MIS SL
[2020-08-24 11:40] LABS: APPEARANCE, URINE HAZY (CLEAR); BACTERIA, URINE AUTO 1+ (NEGATIVE); BILIRUBIN, URINE AUTO NEGATIVE (NEGATIVE); BLOOD, URINE BLOOD 2+ (NEGATIVE); CALCIUM OXALATE CRYSTALS SMALL; COLOR, URINE YELLOW (YELLOW); GLUCOSE, URINE (UA) AUTO NEGATIVE (NEGATIVE); KETONE, URINE AUTO NEGATIVE (NEGATIVE); LEUKOCYTE ESTERASE, URINE AUTO 3+ (NEGATIVE); NITRITE, URINE AUTO NEGATIVE (NEGATIVE); PROTEIN, URINE AUTO NEGATIVE (NEGATIVE); RBC, URINE AUTO 36 /HPF (0-3); SPECIFIC GRAVITY URINE AUTO 1.014 (1.002-1.035); SQUAMOUS EPITHELIAL CELL UR AU 1 /HPF (0-6); UROBILINOGEN, URINE AUTO 0.2 mg/dL (0.0-2.0); WBC, URINE AUTO 77 /HPF (0-3)
[2020-08-24 11:42] LABS: BASO % 0.4 % (0.0-1.0); EOS # 0.1 10^3/uL (0.0-0.5); EOS % 1.7 % (0.0-3.0); HEMATOCRIT 35.7 % (36.0-47.0); HEMOGLOBIN 10.7 g/dl (12.0-15.5); LYMPH # 1.7 10^3/uL (1.5-5.0); LYMPH % 31.2 % (24.0-44.0); MEAN CORPUSCULAR HEMOGLOBIN 28.8 pg (27.0-33.0); MEAN CORPUSCULAR VOLUME 96.2 fl (80.0-96.0); MONO # 0.5 10^3/uL (0.0-0.8); MONO % 8.6 % (2.0-8.0); NEUTROPHILS # 3.1 10^3/uL (1.5-8.5); NEUTROPHILS % 57.9 % (36.0-66.0); PLATELET COUNT, AUTOMATED 304 10^3/uL (150-450); RED BLOOD COUNT 3.71 10^6/uL (4.00-5.40); WHITE BLOOD COUNT 5.3 10^3/uL (4.0-10.0)
[2020-08-24 12:16] LABS: ALT/SGPT 42 U/L (12-78); BILIRUBIN,TOTAL 0.2 MG/DL (0.2-1.0); BLOOD UREA NITROGEN 12 MG/DL (7-18); CALCIUM LEVEL 9.1 MG/DL (8.5-10.1); CARBON DIOXIDE LEVEL 30 MEQ/L (21-32); CHLORIDE LEVEL 105 MEQ/L (98-107); CREATININE FOR GFR 0.78 MG/DL (0.55-1.30); GLOMERULAR FILTRATION RATE > 60.0 (>60); GLUCOSE, FASTING 98 MG/DL (70-100); POTASSIUM SERUM 3.7 MEQ/L (3.5-5.1); SODIUM LEVEL 139 MEQ/L (136-145); TOTAL PROTEIN 7.2 GM/DL (6.4-8.2)
[2020-08-24 12:25] LABS: HEPATITIS B SURFACE ANTIBODY POSITIVE (POSITIVE)
[2020-08-24 12:35] LABS: HEPATITIS B SURFACE ANTIGEN NEGATIVE (NEGATIVE)
[2020-08-24 13:03] LABS: HEPATITIS B CORE ANTIBODY IGM NEGATIVE (NEGATIVE)
[2020-08-24 13:05] LABS: HEPATITIS A ANTIBODY IGM NEGATIVE (NEGATIVE)
[2020-08-24 13:06] LABS: HEPATITIS C VIRUS ABY INDEX > 11.0 INDEX (<0.8)
[2020-08-28 13:07] LABS: HEPATITIS A IgG TOTAL Negative (Negative); HEPATITIS C VIRUS GENOTYPE 1a (.)
== END ==
LOC: M LAB 10:42
PROVIDERS: ATTEND Physician Assistant Medical
DX: Z02.2 Encounter for examination for admission to residential institution (principal)

== ENCOUNTER 2020-08-27 19:22 | Emergency (ER) | payer OTHER ==
[~2020-08-27] VITALS: Ht 162.6 cm; Wt 58.2 kg
[~2020-08-27 19:22] MED LIST changes: -ACET-907 PO; -BUSP15TA47 PO; -CEPH25SS PO; -DOXE150C PO; -LACT20EL PO; -LATU20TA PO; -NICO14DI6 TD; -SUBO8MIS SL
[2020-08-27] MEDS ORDERED: BUSP15TA47 PO (19:36)
[2020-08-27] MEDS ORDERED: DOXE150C PO (19:36)
[2020-08-27] MEDS ORDERED: NICO14DI6 TD (19:36)
[2020-08-27] MEDS ORDERED: ACET-907 PO (19:36)
[2020-08-27] MEDS ORDERED: CEPH25SS PO (19:36)
[2020-08-27] MEDS ORDERED: SUBO8MIS SL (19:36)
[2020-08-27] MEDS ORDERED: LATU20TA PO (19:36)
[2020-08-27] MEDS ORDERED: NS 1,000 ML IV ONE (21:10)
[2020-08-27 21:22] LABS: BASO % 0.4 % (0.0-1.0); EOS # 0.1 10^3/uL (0.0-0.5); EOS % 2.8 % (0.0-3.0); HEMATOCRIT 33.3 % (36.0-47.0); HEMOGLOBIN 10.4 g/dl (12.0-15.5); LYMPH % 40.6 % (24.0-44.0); MEAN CORPUSCULAR HEMOGLOBIN 29.1 pg (27.0-33.0); MEAN CORPUSCULAR HGB CONC 31.2 g/dl (32.0-36.5); MEAN CORPUSCULAR VOLUME 93.3 fl (80.0-96.0); MONO # 0.5 10^3/uL (0.0-0.8); MONO % 10.1 % (2.0-8.0); NEUTROPHILS # 2.2 10^3/uL (1.5-8.5); NEUTROPHILS % 45.3 % (36.0-66.0); PLATELET COUNT, AUTOMATED 281 10^3/uL (150-450); RED BLOOD COUNT 3.57 10^6/uL (4.00-5.40); WHITE BLOOD COUNT 4.9 10^3/uL (4.0-10.0)
[2020-08-27 22:13] LABS: INR 0.88; PROTHROMBIN TIME 12.1 SECONDS (12.5-14.3)
[2020-08-27 22:14] LABS: PARTIAL THROMBOPLASTIN TIME 33.4 SECONDS (24.2-38.5)
[2020-08-27 22:38] LABS: ALBUMIN 3.1 GM/DL (3.2-5.2); ALT/SGPT 44 U/L (12-78); BILIRUBIN,DIRECT < 0.1 MG/DL (0.0-0.2); BILIRUBIN,TOTAL 0.2 MG/DL (0.2-1.0); BLOOD UREA NITROGEN 10 MG/DL (7-18); CARBON DIOXIDE LEVEL 27 MEQ/L (21-32); CHLORIDE LEVEL 105 MEQ/L (98-107); CREATININE FOR GFR 0.69 MG/DL (0.55-1.30); GLOMERULAR FILTRATION RATE > 60.0 (>60); GLUCOSE, FASTING 73 MG/DL (70-100); POTASSIUM SERUM 5.4 MEQ/L (3.5-5.1); SODIUM LEVEL 138 MEQ/L (136-145); TOTAL PROTEIN 7.7 GM/DL (6.4-8.2)
[2020-08-27] MEDS ORDERED: KETOROLAC 60MG 2ML VIAL IM ONE (22:40)
--- NOTE | 2020-08-27 23:35 | REPVR ---
PROCEDURE INFORMATION: Exam: XR Complete Acute Abdomen Series Including Chest Exam date and time: 08/27/2020 10:11 PM Age: 35 years old Clinical indication: Abdominal pain; Generalized; Additional info: Distended abd, HX of a gastric perforation TECHNIQUE: Imaging protocol: XR complete acute abdomen series, including 2 or more views of the abdomen and a single view chest. COMPARISON: No relevant prior studies available. FINDINGS: Tubes, catheters and devices: Suture material and surgical clips noted in the epigastric region. Lungs: Unremarkable. No consolidation. No pulmonary edema. Pleural spaces: No pleural effusion. No pneumothorax. Heart/Mediastinum: Unremarkable. No cardiomegaly. Gastrointestinal tract: No dilation of the small bowel is noted. There is a moderate to large amount of stool in the ascending colon, gaseous distension of the transverse colon, and a mild to moderate amount of formed stool in the remainder of the colon. Gas and stool are seen in the rectum. Intraperitoneal space: No free air is identified. Bones/joints: Unremarkable. Soft tissues: Unremarkable. IMPRESSION: Moderate to large amount of stool in the ascending colon, gaseous distension of the transverse colon, and a mild to moderate amount of formed stool in the remainder of the colon. No radiographic evidence for a bowel obstruction. Electronically signed by: Jorge Ortiz On 08/27/2020 23:34:25 PM
[2020-08-28] MEDS ORDERED: LACT20EL PO (00:08)
[2020-08-28] MEDS ORDERED: LACTULOSE 20 GM/30 ML SYRUP UD PO ONE (00:10)
[2020-08-28 00:17] VITALS: BP 148/88
[2020-08-29 17:09] LABS: Lyme Disease IgG/IgM Antibodie <0.91 ISR (0.00-0.90); Lyme Disease IgM Ab Quantitati <0.80 index (0.00-0.79)
== END 2020-08-28 00:42 | disposition home or self-care (01) ==
LOC: M ED 19:22
DX: E87.5 Hyperkalemia (principal); K59.00 Constipation, unspecified; B18.2 Chronic viral hepatitis C; Z53.20 Procedure and treatment not carried out because of patient's decision for unspecified reasons; Z88.6 Allergy status to analgesic agent
CPT/HCPCS: 36415; 74021; 80048; 80076; 84702; 85025; 85610; 85730; 86617; 87040; 87077; 96372; 99284; J1885

== ENCOUNTER 2021-12-08 03:41 | Inpatient (IN) | payer OTHER ==
[~2021-12-08] VITALS: Ht 162.6 cm; Wt 90.0 kg
[~2021-12-08 03:41] MED LIST changes: +ACET-907 PO; +BUSP15TA47 PO; +CEPH25SS PO; +DOXE150C PO; +LACT20EL PO; +LATU20TA PO; -MONT10TA10 PO; +MONT10TA97 PO; +NICO14DI6 TD; +OLAN1TAB16 PO; -OLAN5TAB PO; +SUBO8MIS SL
[2021-12-08 04:34] LABS: HEMATOCRIT 29.9 % (36.0-47.0); MEAN CORPUSCULAR HEMOGLOBIN 24.3 pg (27.0-33.0); MEAN CORPUSCULAR HGB CONC 30.1 g/dl (32.0-36.5); MEAN CORPUSCULAR VOLUME 80.6 fl (80.0-96.0); PLATELET COUNT, AUTOMATED 550 10^3/uL (150-450); RED BLOOD COUNT 3.71 10^6/uL (4.00-5.40); WHITE BLOOD COUNT 7.6 10^3/uL (4.0-10.0)
[2021-12-08] MEDS ORDERED: OLANZapine ORAL DISINTEGRATING TAB 5MG PO ONE (04:45)
[2021-12-08 05:01] LABS: HCG, SERUM QUALITATIVE NEGATIVE (NEGATIVE)
[2021-12-08 05:04] LABS: RSV AMPLIFICATION NEGATIVE (NEGATIVE)
[2021-12-08 05:13] LABS: AMPHETAMINES LEVEL URINE POSITIVE (NEGATIVE); BARBITURATES URINE NEGATIVE (NEGATIVE); BENZODIAZEPINES URINE NEGATIVE (NEGATIVE); CANNABINOIDS URINE POSITIVE (NEGATIVE); COCAINE METABOLITE URINE NEGATIVE (NEGATIVE); METHADONE URINE NEGATIVE (NEGATIVE); OPIATES URINE NEGATIVE (NEGATIVE); PHENCYCLIDINE URINE NEGATIVE (NEGATIVE)
[2021-12-08 05:17] LABS: ACETAMINOPHEN LEVEL < 2.0 UG/ML (10.0-30.0); ALBUMIN 4.2 GM/DL (3.2-5.2); ALT/SGPT 37 U/L (12-78); BILIRUBIN,DIRECT 0.2 MG/DL (0.0-0.2); BILIRUBIN,TOTAL 0.6 MG/DL (0.2-1.0); BLOOD UREA NITROGEN 20 MG/DL (7-18); CALCIUM LEVEL 9.6 MG/DL (8.5-10.1); CARBON DIOXIDE LEVEL 20 MEQ/L (21-32); CHLORIDE LEVEL 107 MEQ/L (98-107); CREATININE FOR GFR 1.15 MG/DL (0.55-1.30); ETHYL ALCOHOL (ETHANOL) < 0.003 % (0.000-0.010); GLOMERULAR FILTRATION RATE 56.5 (>60); GLUCOSE, FASTING 131 MG/DL (70-100); POTASSIUM SERUM 3.3 MEQ/L (3.5-5.1); SALICYLATE LEVEL < 1.7 MG/DL (5.0-30.0); SODIUM LEVEL 138 MEQ/L (136-145); THYROID STIMULATING HORMONE 0.542 uIU/ML (0.358-3.740); TOTAL PROTEIN 8.2 GM/DL (6.4-8.2)
[2021-12-08] MEDS ORDERED: POTASSIUM CHLORIDE 10MEQ SR TABLET PO ONE (07:00)
[2021-12-08] MEDS ORDERED: CLON-412 PO (15:47)
[2021-12-08] MEDS ORDERED: GERI8.6T PO (15:47)
[2021-12-08] MEDS ORDERED: pt comment (15:52)
[2021-12-08] MEDS ORDERED: HOME MED LIST COMPLETE! XX SCH (15:55)
[2021-12-10] MEDS: NICOTINE 21MG/24HR 1 EA TRANSDERMAL TD SCH (09:00)
[2021-12-10] MEDS ORDERED: MAALOX 30 ML SUSP *UDC PO PRN (13:25)
[2021-12-10] MEDS ORDERED: MOM 30ML SUSPENSION UDC PO PRN (13:25)
[2021-12-10] MEDS ORDERED: traZODone 50 MG TAB PO PRN (13:25)
[2021-12-10] MEDS ORDERED: OLANZapine ORAL DISINTEGRATING TAB 5MG PO PRN (13:25)
[2021-12-10 14:35] LABS: RSV AMPLIFICATION NEGATIVE (NEGATIVE)
[2021-12-10 16:07] VITALS: BP 155/77
[2021-12-10] MEDS: ACETAMINOPHEN TAB 650MG DOSE (2X325MG) PO SCH (20:01)
[2021-12-10] MEDS: BUPRENORPHINE/NALOXONE 8-2MG SUBLINGUAL TABLET(SUBOXONE) SL SCH (20:01)
[2021-12-10] MEDS: cloNIDine 0.1MG TABLET PO SCH (20:01)
[2021-12-11 06:53] VITALS: BP 125/65
[2021-12-11] MEDS: NICOTINE 21MG/24HR 1 EA TRANSDERMAL TD SCH (09:03)
[2021-12-11] MEDS: ACETAMINOPHEN TAB 650MG DOSE (2X325MG) PO SCH ×2 (09:04→20:14)
[2021-12-11] MEDS: BUPRENORPHINE/NALOXONE 8-2MG SUBLINGUAL TABLET(SUBOXONE) SL SCH ×2 (09:05→20:13)
[2021-12-11] MEDS: VENLAFAXINE **XR** 75MG CAPSULE PO SCH (09:05)
[2021-12-11] MEDS: cloNIDine 0.1MG TABLET PO SCH ×2 (09:06→20:13)
[2021-12-11] MEDS: SENNA 8.6 MG TAB (SENOKOT) PO SCH (09:07)
[2021-12-11 16:36] VITALS: BP 100/54
[2021-12-11 20:26] LABS: PERCENT SATURATION 2.9 % (13.2-45.0)
[2021-12-12 06:39] VITALS: BP 97/50
[2021-12-12] MEDS ORDERED: FERROUS SULFATE 325MG TAB PO SCH (09:00)
[2021-12-12 09:01] VITALS: BP 112/53
[2021-12-12] MEDS: SENNA 8.6 MG TAB (SENOKOT) PO SCH (09:01)
[2021-12-12] MEDS: VENLAFAXINE **XR** 75MG CAPSULE PO SCH (09:01)
[2021-12-12] MEDS: BUPRENORPHINE/NALOXONE 8-2MG SUBLINGUAL TABLET(SUBOXONE) SL SCH (09:01)
[2021-12-12] MEDS: cloNIDine 0.1MG TABLET PO SCH (09:01)
[2021-12-12] MEDS: NICOTINE 21MG/24HR 1 EA TRANSDERMAL TD SCH (09:02)
[2021-12-12] MEDS: ACETAMINOPHEN TAB 650MG DOSE (2X325MG) PO SCH (09:02)
[2021-12-13 08:09] LABS: FOLATE 11.6 ng/mL (>3.0)
== END 2021-12-12 10:22 | disposition home or self-care (01) | DRG 751 ==
LOC: M ED 03:41 → M ED INP 12-10 13:24 → M PSY 12-10 15:32
PROVIDERS: ADMIT Psychiatry & Neurology Psychiatry; ATTEND Psychiatry & Neurology Psychiatry
DX: F29 Unspecified psychosis not due to a substance or known physiological condition (principal); D50.9 Iron deficiency anemia, unspecified; F17.200 Nicotine dependence, unspecified, uncomplicated; F31.9 Bipolar disorder, unspecified; F41.9 Anxiety disorder, unspecified; F12.90 Cannabis use, unspecified, uncomplicated; F15.90 Other stimulant use, unspecified, uncomplicated; F60.3 Borderline personality disorder; Z79.899 Other long term (current) drug therapy; Z88.6 Allergy status to analgesic agent

== ENCOUNTER → 2022-03-19 | Outpatient (CLI) | payer OTHER ==
[~2022-03-19] MED LIST changes: +CLON-412 PO; +GERI8.6T PO; +pt comment
== END ==
LOC: M OUTALCOH 07:31
PROVIDERS: ATTEND Psychiatry & Neurology Psychiatry
DX: F10.10 Alcohol abuse, uncomplicated (principal)

== ENCOUNTER 2022-03-31 14:52 | Outpatient (RCR) | payer OTHER | END 2022-04-01 | LOC: M OUTALCOH 14:52 | PROVIDERS: ATTEND Psychiatry & Neurology Psychiatry | DX: F15.20 Other stimulant dependence, uncomplicated (principal); Z72.0 Tobacco use ==

== ENCOUNTER → 2022-04-29 | Outpatient (RCR) | payer OTHER ==
[~2022-04-29] MED LIST changes: +MONT-5 PO; -SING10TA32 PO
== END ==
LOC: M OUTALCOH 04-10 15:38
PROVIDERS: ATTEND Psychiatry & Neurology Psychiatry
DX: F15.20 Other stimulant dependence, uncomplicated (principal); Z72.0 Tobacco use

== ENCOUNTER 2022-05-29 09:00 | Outpatient (RCR) | payer OTHER | END 2022-05-30 | LOC: M OUTALCOH 09:00 | PROVIDERS: ATTEND Psychiatry & Neurology Psychiatry | DX: F15.20 Other stimulant dependence, uncomplicated (principal); Z72.0 Tobacco use ==

== ENCOUNTER 2022-06-25 16:00 | Outpatient (RCR) | payer OTHER | END 2022-06-29 | LOC: M OUTALCOH 16:00 | PROVIDERS: ATTEND Psychiatry & Neurology Psychiatry | DX: F15.20 Other stimulant dependence, uncomplicated (principal); Z72.0 Tobacco use ==

== ENCOUNTER 2022-07-24 09:00 | Outpatient (RCR) | payer OTHER | END 2022-07-30 | LOC: M OUTALCOH 09:00 | PROVIDERS: ATTEND Psychiatry & Neurology Psychiatry | DX: F15.20 Other stimulant dependence, uncomplicated (principal); Z72.0 Tobacco use ==

== ENCOUNTER 2022-08-28 13:00 | Outpatient (RCR) | payer OTHER | END 2022-08-29 | LOC: M OUTALCOH 13:00 | PROVIDERS: ATTEND Psychiatry & Neurology Psychiatry | DX: F15.20 Other stimulant dependence, uncomplicated (principal); Z72.0 Tobacco use ==

== ENCOUNTER → 2022-09-29 | Outpatient (RCR) | payer OTHER | LOC: M OUTALCOH 09-04 13:09 | PROVIDERS: ATTEND Psychiatry & Neurology Psychiatry | DX: F15.20 Other stimulant dependence, uncomplicated (principal); Z72.0 Tobacco use ==

== ENCOUNTER 2022-10-06 16:34 | Outpatient (RCR) | payer OTHER ==
[2022-10-10] MEDS ORDERED: ACET-683 PO (13:42)
[2022-10-10] MEDS ORDERED: NALO4SPR (13:46)
[2022-10-11] MEDS ORDERED: CEPH500C PO (13:26)
[2022-10-12] MEDS ORDERED: CEPH500C PO (01:43)
== END 2022-10-30 ==
LOC: M OUTALCOH 16:34
PROVIDERS: ATTEND Psychiatry & Neurology Psychiatry
DX: F15.20 Other stimulant dependence, uncomplicated (principal); Z72.0 Tobacco use

== ENCOUNTER 2022-10-10 08:51 | Observation (INO) | payer OTHER ==
[~2022-10-10] VITALS: Ht 162.6 cm; Wt 56.8 kg
[2022-10-10] MEDS ORDERED: ONDANSETRON 4MG 2ML VIAL IV ONE (09:40)
[2022-10-10] MEDS ORDERED: NS 500 ML IV ONE ×2 (09:40→12:10)
[2022-10-10] MEDS ORDERED: ACETAMINOPHEN 1000MG 100ML IV BAG IV ONE (09:40)
[2022-10-10 10:34] LABS: HEMATOCRIT 32.1 % (36.0-47.0); HEMOGLOBIN 9.8 g/dl (12.0-15.5); MEAN CORPUSCULAR HEMOGLOBIN 25.2 pg (27.0-33.0); MEAN CORPUSCULAR HGB CONC 30.5 g/dl (32.0-36.5); MEAN CORPUSCULAR VOLUME 82.5 fl (80.0-96.0); PLATELET COUNT, AUTOMATED 246 10^3/uL (150-450); RED BLOOD COUNT 3.89 10^6/uL (4.00-5.40); WHITE BLOOD COUNT 10.6 10^3/uL (4.0-10.0)
[2022-10-10] MEDS ORDERED: KETOROLAC 30 MG/ML 1ML VIAL IV ONE ×2 (10:55→13:00)
[2022-10-10 11:01] LABS: CALCIUM LEVEL 8.4 MG/DL (8.5-10.1); CREATININE FOR GFR 1.91 MG/DL (0.55-1.30); GLOMERULAR FILTRATION RATE 31.3 (>60); POTASSIUM SERUM 3.8 MMOL/L (3.5-5.1)
[2022-10-10 11:04] LABS: ATYPICAL LYMPH 4 % (0-5); LYMPHOCYTES 8 % (16-44); MONOCYTES 7 % (0-5); NEUTROPHILS 76 % (28-66); PLATELET ESTIMATE NORMAL (NORMAL)
[2022-10-10] MEDS ORDERED: ACETAMINOPHEN TAB 650MG DOSE (2X325MG) PO PRN (12:25)
[2022-10-10] MEDS ORDERED: NS 1,000 ML IV SCH (12:25)
[2022-10-10] MEDS ORDERED: MORPHINE 2 MG/ML 1ML VIAL IV PRN ×2 (12:25)
[2022-10-10] MEDS ORDERED: cefTRIAXone SOD 1 GM in D5W MINI-BAG PLUS 50 ML IV ONE (12:25)
[2022-10-10] MEDS ORDERED: MED REC IN PROGRESS XX SCH (12:50)
[2022-10-10] MEDS ORDERED: NICOTINE 14 MG/24 HR TRANSDERMAL TD ONE (12:55)
[2022-10-10] MEDS ORDERED: PANTOPRAZOLE 40MG VIAL IV SCH (13:00)
[2022-10-10 13:12] LABS: ALBUMIN 2.6 G/DL (3.2-5.2); BILIRUBIN,DIRECT 0.1 MG/DL (<0.4); BILIRUBIN,TOTAL 0.3 MG/DL (0.3-1.2); TOTAL PROTEIN 5.9 G/DL (5.7-8.2)
[2022-10-10] MEDS ORDERED: ACET-683 PO (13:42)
[2022-10-10] MEDS ORDERED: NALO4SPR (13:46)
[2022-10-10] MEDS ORDERED: HOME MED LIST COMPLETE! XX SCH (13:50)
[2022-10-10] MEDS ORDERED: ISOVUE-300 61% 100ML VIAL As Ordered ONE (17:42)
[2022-10-10] MEDS ORDERED: MIDAZOLAM INJ 2MG/2ML VIAL As Ordered ONE (19:03)
[2022-10-10] MEDS ORDERED: ACETAMINOPHEN 1000MG 100ML IV BAG As Ordered ONE (19:03)
[2022-10-10] MEDS ORDERED: PHENYLephrine 500MCG 5ML (100MCG/ML) SYRINGE As Ordered ONE (19:03)
[2022-10-10] MEDS ORDERED: LIDOCAINE 2% 100MG/5ML SDV (FOR ANES.) As Ordered ONE (19:03)
[2022-10-10] MEDS ORDERED: ONDANSETRON 4MG 2ML VIAL As Ordered ONE (19:03)
[2022-10-10] MEDS ORDERED: propofoL 200 MG/20 ML VIAL As Ordered ONE (19:03)
[2022-10-10] MEDS ORDERED: fentaNYL 100 MCG/2 ML INJECTION As Ordered ONE (19:03)
[2022-10-10 20:10] VITALS: TEMP 97.4
[2022-10-10] MEDS ORDERED: PHENYLephrine 500MCG 5ML (100MCG/ML) SYRINGE IV PRN (20:25)
[2022-10-10] MEDS ORDERED: PHENYLEPHRINE HCL INJ 10 MG in D5W 100 ML IV SCH (20:25)
[2022-10-10 21:20] VITALS: BP 108/62; O2SAT 100
[2022-10-11] MEDS ORDERED: VENLAFAXINE **XR** 75MG CAPSULE PO SCH (09:00)
[2022-10-11] MEDS ORDERED: cefTRIAXone SOD 1 GM in D5W MINI-BAG PLUS 50 ML IV SCH (13:00)
[2022-10-11] MEDS ORDERED: CEPH500C PO (13:26)
== END 2022-10-10 21:20 | disposition home or self-care (01) ==
LOC: M ED 08:51 → INTOOBSV 12:24 → M ED INP 12:24 → ENRESERV 16:02
PROVIDERS: ADMIT Internal Medicine; ATTEND Internal Medicine
PROC: 0T778DZ Dilation of Left Ureter with Intraluminal Device, Via Natural or Artificial Opening Endoscopic (ICD-10-PCS; principal; 2022-10-10 12:09)
DX: A41.9 Sepsis, unspecified organism (principal); F32.A Depression, unspecified; F41.9 Anxiety disorder, unspecified; F17.210 Nicotine dependence, cigarettes, uncomplicated; B96.20 Unspecified Escherichia coli [E. coli] as the cause of diseases classified elsewhere; N39.0 Urinary tract infection, site not specified; F43.10 Post-traumatic stress disorder, unspecified; F60.3 Borderline personality disorder; N17.9 Acute kidney failure, unspecified; N13.6 Pyonephrosis; Z20.822 Contact with and (suspected) exposure to COVID-19; Z79.899 Other long term (current) drug therapy; Z88.6 Allergy status to analgesic agent; Z88.8 Allergy status to other drugs, medicaments and biological substances
CPT/HCPCS: 52332; 74176; 74420; 80048; 80076; 81001; 83605; 84702; 85025; 86850; 86900; 86901; 87040; 87077; 87088; 87186; 87635; 93041; 96365; 96375; 96376; 99285; C1769; C2617; J0131; J0696; J1100; J1885; J2250; J2371; J2405; J3010; Q9967